=== PATIENT | female | born 1975 | race Caucasian/White ===

== ENCOUNTER 2024-09-22 14:57 | Outpatient (AMB) | payer OTHER, SELFPAY ==
--- NOTE | 2024-09-22 14:58 | MHC.OFFVIS ---
Vital Signs 09/22/24 15:13 Height 5 ft 5 in Weight 224 lb 13.944 oz BMI 37.4 BP 152/92 H Blood Pressure Location Rt brachial Position Sitting Pulse 84 Pulse Source Pulse Oximeter Pulse Oximetry (%) 99 Oxygen Delivery Method Room Air Intake Visit Reasons: Mica scrn Intake Note: NEW PATIENT for initial colo screening. FMHx noted (Paternal Grandmother) Chief Complaint; Pharmacy verified? Unspecified. 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 female with past medical history of hypertension, seasonal allergies, anxiety, GERD is here today for pre colonoscopy screening.? Patient was sent to us by her PCP.? This is her first colonoscopy screening.? Patient denies any gastrointestinal symptoms in the past or at present.? Patient reports that her mom's cousin was diagnosed with colorectal cancer. No known immediate biological family with history of CRC.? Denies history of difficulty with sedation or anesthesia in the past.? Negative for history of sleep apnea.? Denies any history of cardiac, renal, pulmonary, or hepatic disease.?? Patient has been diagnosed with GERD and has been on omeprazole for well over 2 years. She continues to have occasional acid reflux depending on what she eats. No history of infectious? diseases like hepatitis A, B, C, HIV or tuberculosis.? Patient is not on any anticoagulation [facility] Medical History Family history of colon cancer Nicotine dependence in remission GERD (gastroesophageal reflux disease) HTN (hypertension) Surgical History (Updated 09/22/24 @ 15:03 by YANDY Wilson) History of tonsillectomy Review of Systems Const Denies weight gain and Denies weight loss ENT Reports no additional complaints, Denies dysphagia and Denies odynophagia Card Reports no additional complaints Resp Reports no additional complaints GI Denies abdominal pain, Denies belching, Denies melena, Denies bloating, Denies change in bowel habits, Denies dysphagia, Denies excessive flatus, Denies dyspepsia, Denies heartburn, Denies diarrhea, Denies loose stools, Denies nausea, Denies odynophagia and Denies vomiting Musc Reports no additional complaints Neuro Reports no additional complaints Psych Reports no additional complaints Endo Reports no additional complaints Physical Exam Const General: healthy appearing, no acute distress and well developed Nutritional Appearance: well nourished Orientation/consciousness: patient oriented x3 Resp Effort & Inspection: normal respiratory effort, able to speak in complete sentences, no tracheal deviation and symmetric chest movement Auscultation: clear to auscultation bilaterally Cardio Rate: regular rate GI Inspection: Yes normal to inspection and No distended Palpation (GI): Soft to palpation, not firm, nontender and No hepatosplenomegaly present Auscultation: normal bowel sounds General: Yes no CVA tenderness Back/Spine/Pelvis Back: no CVA tenderness Skin General skin exam: elasticity normal, turgor normal and dry skin Neuro General: patient oriented x3 Psych Appearance: grossly normal Mental Status: mental status grossly normal Assessment & Plan Assessment & Plan (1) Screen for colon cancer: Code(s): Z12.11 - Encounter for screening for malignant neoplasm of colon Plan Patient denies any cardiac or respiratory symptoms.? History of acid reflux on PPI for over 2 years. Patient will be sent for upper endoscopy to rule out gastritis, esophagitis, H pylori. Patient still experiences acid reflux occasionally. Patient also reports postprandial abdominal bloating and feeling gassy. Denies any issues with anesthesia in the past.? Denies any history of sleep apnea.? No history infectious diseases in the past or present.? Not on any anticoagulation therapy.? No immediate biological family history of colon cancer.? Patient denies melena, hematochezia, unintentional weight loss or ribbon like stools.? Discussed at length the pre-procedure,? prep, diet & medications as well as what to expect prior, during and after the procedure.?? Stressed the importance of good bowel prep.? Recommended the use of Vaseline or Calmoseptine OTC & baby wipes with bowel movements to promote comfort.? ?Patient verbalizes understanding and agrees to plan of care.? She was given the opportunity to ask questions and all questions answered.? We will see her after the procedure.? Medications: New bisacodyl (Dulcolax (bisacodyl)) take 4 tabs at noon the day before your colonoscopy 20 mg (4 x 5 mg) PO ONCE 1 day 4 tabs 0RF Z12.11 - Encounter for screening for malignant neoplasm of colon polyethylene glycol 3350 (Miralax) As directed by gastroenterology department at [facility] 238 grams PO ONCE 238 grams 0RF Z12.11 - Encounter for screening for malignant neoplasm of colon Coding Level of Care Code New Pt Level 3 (17120) Diagnoses Screen for colon cancer Z12.11 Time Spent (min) 40 Comment 30 minutes spent with patient and additional 10 minutes spent reviewing her records
[2024-09-22 15:13] VITALS: BP 152/92; PULSE 84; O2SAT 99; BMI 37.4
--- OUTSIDE RECORDS SUMMARY | 2024-09-22 18:42 | XMS_ITS | Clinical Summary ---
Author Organization [facility] Address [address] [place] [id number] Care Team Providers Care Outpatient Program Coordinator Name Role Phone Dobbins Winter HAWKINS Primary Care Provider [phone] Allergies Active Allergy Reactions Criticality Noted Date Comments Sulfa Antibiotics Hives,Rash/Dermatitis,Swelling Medium 09/11/1991 Medications Medication Sig Dispensed Refills Start Date End Date Status Metoprolol Succinate 100 MG Capsule ER 24 Hour Sprinkle Take 50 mg by mouth. Active topiramate (TOPAMAX) 50 MG tablet Active Feverfew 380 MG Cap Activ e Mag Threonate-Niacinamide ER 500-250 MG Tab CR Acti ve OMEprazole 20 MG Tablet Delayed Response Active cetirizine (ZyrTEC Allergy) 10 MG tablet Act emelina Cholecalciferol (D3 2000) 2000 UNITS Cap capsule Active coenzyme Q10 (CoQ10) 100 MG capsule Active Cranberry-Vitamin C-Probiotic (AZO Cranberry) 250-30 MG Tab Active fluticasone (FloNASE) 50 mcg/spray nasal sprayIndications:Eusta chian tube dysfunction, bilateral 2 sprays into each nostril 2 times a day. 1 each 3 09/15/2024 Active Active Problems Problem Noted Date Diagnosed Date Migraine 11/10/2006 High blood pressure 03/13/1992 Encounters Date Type Department Care Team Description 09/15/2024 9:30 AM EST Clinical Support [facility] [address] [phone] Niranjan Cisneros MD Czaplicki, Allison, Au.D Otalgia of both ears (Primary Dx); Other abnormal auditory perceptions, bilateral; Tinnitus of both ears; Eustachian tube dysfunction, bilateral from Last 3 Months Immunizations Name Administration Dates Next Due Influenza, Unspecified 04/18/2024 Social History Tobacco Use Types Packs/Day Years Used Date Smoking Tobacco: Former Cigarettes Q uit: 07/13/2018 Passive Smoke Exposure: Never Smokeless Tobacco: Never Alcohol Use Standard Drinks/Week Comments Yes 0 (1 standard drink = 0.6 oz pur e alcohol) Sex and Gender Information Value Date Recorded Sex Assigned at Female 08/31/2024 9:47 AM EST Gender Identity Female 08/31/2024 9:47 AM EST Sexual Orientation Heterosexual (straight) 08/31 9:47 AM EST Last Filed Vital Signs Vital Sign Reading Time Taken Comments Blood Pressure - - Pulse - - Temperature - - Respiratory Rate - - Oxygen Saturation - - Inhaled Oxygen Concentration - - Weight 99.8 kg (220 lb) 09/15/2024 9:53 AM EST Height 165.1 cm (5' 5 ) 09/15/2024 9:53 AM EST Body Mass Index 36.61 09/15/2024 9:53 AM EST Plan of Treatment Upcoming Encounters Date Type Department Care Team (Late st Contact Info) Description 03/27/2025 9:00 AM EDT Clinical Support [facility] [address] [phone] Selena Mcleod Au.D [address] [place] [phone] 03/27/2025 9:30 AM EDT Office Visit [facility] [address] [phone] Niranjan Cisneros MD [address] [place] [phone] Health Maintenance Due Date Last Done Comments Hepatitis C Virus Screening 1975 HIV Screening 09/11/1988 DTaP/Tdap/Td Vaccines (1 - Tdap) 09/11/1994 Hepatitis B Vaccines (1 of 3 - 19+ 3-dose series) 09/11/1994 Pap Smear (Ages 21-65) 09/11/1996 Mammogram 2015 Colonoscopy 09/11/2020 COVID-19 Vaccine Completed 04/18/2024, 06/26/2021 Influenza Vaccine Completed 04/18/2024, , 06/26/2021, Additional history exists Pneumococcal Vaccine: Pediatric (0-5 Years) and At-Risk Patients (6 to 49 Years) Aged Out No longer eligible based on patient's age to complete this topic Procedures Procedure Name Priority Date/Time Associated Diagnosis Comments AUDIOMETRY Routine 09/15/2024 9:30 AM EST Other abnormal auditory perceptions, bilateral Otalgia of both ears Tinnitus of both ears AUDIOMETRY Routine 09/15/2024 9:30 AM EST Other abnormal auditory perceptions, bilateral Otalgia of both ears Tinnitus of both ears from Last 3 Months Results * Audiometry (09/15/2024 9:30 AM EST) Narrative Selena Mcleod Au.D - 09/15/2024 9:30 AM EST Regina Granado ? 09/15/2024 ??9:43 AM Niranjan Cisneros MD AUDIOLOGY SERVICES O [facility] from Last 3 Months Care Teams Outpatient Program Coordinator Relationship Specialty Start Date End Date Winter Dobbins APRN [address] [place] [address] PCP - General Family Medicine 09/15/24
--- OUTSIDE RECORDS SUMMARY | 2024-09-22 18:43 | XMS_ITS | Data Portability ---
Author Organization [facility] Address [address] [place] [address] Care Team Providers Care Electrocardiograph Technician Name Role Phone SIENNA VALIENTE Primary Care Provider SIENNA VALIENTE Referring Provider Assessment No assessment recorded. Plan of Treatment Reminders Order Date Submit Date Provider Last Modified By Organization Details Last Modified Time Details Appointments None recorde d. Lab FSH (follic le-stim ulating hormone ), serum 2023 024 [facility] Patient Reg, [address] [place], [address], 4 14:50:03 lh (lutein izing hormone ), serum 2023 024 [facility] Patient Reg, [address] [place], [address], 4 14:50:04 estradi ol, serum 2023 024 [facility] Patient Reg, [address] [place], [address], 4 14:49:57 lipid panel, serum 2023 024 [facility] Patient Reg, [address] [place], [address], 4 19:24:09 CBC w/ auto diff 2023 024 [facility] Patient Reg, [address] [place], [address], 4 18:55:15 CMP, serum or plasma 2023 024 [facility] Patient Reg, [address] [place], [address], 4 19:24:08 TSH + free T4, serum 2023 024 [facility] Patient Reg, [address] [place], [address], 4 14:50:58 pap, IG + HPV - [id number] 2023 024 [facility] Laboratory Department, [address] [place], [address] 4 00:10:23 hepatit is C virus Ab, serum 2023 024 [facility] Patient Reg, [address] [place], [address], 4 14:48:55 CBC 2022 023 [facility] Patient Reg, [address] [place], [address], 3 13:01:40 CMP, serum or plasma 2022 023 [facility] Patient Reg, [address] [place], [address], 3 13:38:49 urinaly sis, dipstic k 2022 023 [facility], [address] [facility], [facility] [address], [place], [address], 3 09:22:35 culture , urine 2022 023 [facility] Patient Reg, [address] [place], [address], 3 08:24:12 HbA1c (hemogl obin A1c), blood 2022 023 [facility] Patient Reg, [address] [place], [address], 3 19:08:11 lipid panel, serum 2022 023 [facility] Patient Reg, [address] [place], [address], 3 13:38:51 TSH + free T4, serum 2022 023 [facility] Patient Reg, [address] [place], [address], 3 19:31:22 25-hydr oxyvita min D2 + 25-hydr oxyvita min D3, QN, serum or plasma 2022 023 [facility] Patient Reg, [address] [place], [address], 3 19:37:09 magnesi um, serum or plasma 2022 023 [facility] Patient Reg, [address] [place], [address], 3 13:38:53 vitamin B12, serum 2022 023 [facility] Patient Reg, [address] [place], [address], 3 20:02:15 lipid panel, serum [address] Patient Reg, [address] [place], [address], 3 10:28:12 vitamin B12, serum [address] Patient Reg, [address] [place], [address], 3 10:28:12 HbA1c (hemogl obin A1c), blood 2021 022 [facility] Patient Reg, [address] [place], [address], 17:03:37 CBC w/ auto diff 2021 [facility] Patient Reg, [address] [place], [address], 18:16:50 CMP, serum or plasma 2021 [facility] Patient Reg, [address] [place], [address], 18:27:30 TSH, serum or plasma 2021 [facility] Patient Reg, [address] [place], [address], 18:15:24 vitamin B12 + folate, serum or blood 2021 [facility] (Outpatient Registration), [address] [place], [address], 17:27:34 Referral gastroe nterolo gist referra l - Please schedul e and advise patient . Thank you! 2023 024 [email or web address] [facility], [address] [place] [address] , 3rd Fl, [place], [address], 5 11:37:49 gynecol ogist referra l - 47 YO F would like to establi sh care with EMULSIFICATION OPERATOR. Please eval and treat. 2022 024 [email or web address] Sam Strange MD, [address] [facility], [address], [place], [address], 4 13:52:01 gastroe nterolo gist referra l - Due for colon cancer screeni ng. Family History : 2021 022 [facility], [address], [place], [address], 3 12:07:01 Procedures None recorde d. Surgeries None recorde d. Imaging MAMMOabelardo gerardo, tomosyn thesis, abhishek al 2023 024 [facility], [address] [place] [address] Rd, [address], [place], [address], 13:57:05 MAMMOabelardo abhishek carrillo al 2022 023 [facility] (Central Scheduling), [address] [place], [address], 4 04:02:16 MAMMOabelardoabhishek al 2021 022 [facility] (Central Scheduling), [address] [place] [address], [address], 12:53:24 XR, chest, 2 view 2021 022 [facility] (Central Scheduling), [address] [place], [address], 10:23:42 Medication Orders Augment in 875 mg-[address] [id number] [address] [place], [address], 5 15:39:39 prednis one 20 mg tablet [address] [id number] [address] [place], [address], 5 15:39:40 Tessalo n Perles 100 mg capsule 2021 022 [email or web address] [facility] #[id number], [address] [place] [address], [address], 3 07:40:44 Patient TargetsNo targets recorded. Patient InstructionsNo instructions recorded. 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 Family History: Referring Physician: Britney Talavera, Family Medicine, Encounter Date: 04/11/2022 [employer] Consultant Referral for Gy necologic examination 47 YO F would like to establish care with EMULSIFICATION OPERATOR. Please eval and treat. Referring Physician: Pippa Bolivar, Family Medicine, Encounter Date: 06/12/2023 Stove Tender Referral for Screening for malignant neoplasm of colon Please schedule and advise patient. Thank you! Referring Physician: Winter Dobbins, Internal Medicine, Encounter Date: 04/11/2024 Results Created Date Observation Date Name Description Value Unit Range Abnormal Flag Note LastModifiedBy Organization Detail LastModifiedTime 01/30/20 22 01/29/2022 THYRO ID STIMU LATIN G HORMO NE thyroid stimulating hormone 2.4000 uIU/m L 0.27-4 .2 normal Not Available [facility] [address] [place] [address], [id number] 01/29/2022 18:15:24 01/30/20 22 01/29/2022 COMPL ETE BLOOD COUNT AUTO DIFF white blood count 7.33 K/uL 3.5-11 .0 normal Not Available [facility] [address] [place] [address], [id number] 01/29/2022 18:16:50 01/30/20 22 01/29/2022 COMPL ETE BLOOD COUNT AUTO DIFF red blood count 4.85 M/uL 3.60-4 .80 high Not Available [facility] [address] [place] [address], [id number] 01/29/2022 18:16:50 01/30/20 22 01/29/2022 COMPL ETE BLOOD COUNT AUTO DIFF hemoglobin 14.9 g/dL 12.0-1 6.0 normal Not Available [facility] [address] [place] [address], [id number] 01/29/2022 18:16:50 01/30/20 22 01/29/2022 COMPL ETE BLOOD COUNT AUTO DIFF hematocrit 44.3 % 36.0-4 8.0 normal Not Available [facility] [address] [place] [address], [id number] 01/29/2022 18:16:50 01/30/20 22 01/29/2022 COMPL ETE BLOOD COUNT AUTO DIFF mean corpuscular volume 91.3 fL 79.0-9 8.0 normal Not Available [facility] [address] [place] [address], [id number] 01/29/2022 18:16:50 01/30/20 22 01/29/2022 COMPL ETE BLOOD COUNT AUTO DIFF mean corpuscular hemoglobin 30.7 pg 25.4-3 4.6 normal Not Available [facility] Department [address] [place] [address], [id number] 01/29/2022 18:16:50 01/30/20 22 01/29/2022 COMPL ETE BLOOD COUNT AUTO DIFF mean corpuscular HGB conc 33.6 g/dL 30.0-3 6.0 normal Not Available [facility] [address] [place] [address], [id number] 01/29/2022 18:16:50 01/30/20 22 01/29/2022 COMPL ETE BLOOD COUNT AUTO DIFF red cell distribution width 12.6 % 11.5-1 4.5 normal Not Available [facility] [address] [place] [address], [id number] 01/29/2022 18:16:50 01/30/20 22 01/29/2022 COMPL ETE BLOOD COUNT AUTO DIFF platelet count 333 K/uL 150-40 0 normal Not Available [facility] [address] [place] [address], [id number] 01/29/2022 18:16:50 01/30/20 22 01/29/2022 COMPL ETE BLOOD COUNT AUTO DIFF neutrophils percent auto 64.8 % 35.0-6 6.0 normal Not Available [facility] [address] [place] [address], [id number] 01/29/2022 18:16:50 01/30/20 22 01/29/2022 COMPL ETE BLOOD COUNT AUTO DIFF lymphocytes percent auto 26.5 % 25.0-4 5.0 normal Not Available [facility] [address] [place] [address], [id number] 01/29/2022 18:16:50 01/30/20 22 01/29/2022 COMPL ETE BLOOD COUNT AUTO DIFF monocytes percent auto 6.5 % 0.0-13 .0 normal Not Available [facility] Department [address] [place], [address] 01/29/2022 18:16:50 01/30/20 22 01/29/2022 COMPL ETE BLOOD COUNT AUTO DIFF eosinophils percent auto 1.9 % 0.0-8. 0 normal Not Available [facility] Department [address] [place], [address] 01/29/2022 18:16:50 01/30/20 22 01/29/2022 COMPL ETE BLOOD COUNT AUTO DIFF basophils percent auto 0.3 % 0.0-1. 0 normal Not Available [facility] Department [address] [place], [address] 01/29/2022 18:16:50 01/30/20 22 01/29/2022 COMPL ETE BLOOD COUNT AUTO DIFF neutrophils absolute auto 4.75 K/uL 1.5-7. 5 normal Cauti on: Inter preta tion of ANC resul ts witho ut inclu minesh of the WBC diffe renti al resul ts may lead to bree eous diagn osis; for examp le, osvaldo ng myelo proli ferat [place] or lymph oprol ifera tive disor ders. Not Available [facility] Department [address] [place] [address], [id number] 01/29/2022 18:16:50 01/30/20 22 01/29/2022 COMPL ETE BLOOD COUNT AUTO DIFF lymphocytes absolute auto 1.94 K/uL 0.8-4. 8 normal Not Available [facility] Department [address] [place], [address] 01/29/2022 18:16:50 01/30/20 22 01/29/2022 COMPL ETE BLOOD COUNT AUTO DIFF monocytes absolute auto 0.48 K/uL 0.4-1. 3 normal Not Available [facility] [address] [place] [address], [id number] 01/29/2022 18:16:50 01/30/20 22 01/29/2022 COMPL ETE BLOOD COUNT AUTO DIFF eosinophils absolute auto 0.14 K/uL 0.0-0. 8 normal Not Available [facility] [address] [place] [address], [id number] 01/29/2022 18:16:50 01/30/20 22 01/29/2022 COMPL ETE BLOOD COUNT AUTO DIFF basophils absolute auto 0.02 K/uL 0.0-0. 6 normal Not Available [facility] [address] [place] [address], [id number] 01/29/2022 18:16:50 01/30/20 22 01/29/2022 COMPR EHENS ANGELES MET. PANEL sodium 142 mmol/ L 136-14 5 normal Not Available [facility] Department [address] [place] [address], [id number] 01/29/2022 18:27:30 01/30/20 22 01/29/2022 COMPR EHENS ANGELES MET. PANEL potassium 4.1 mmol/ L 3.5-5. 1 normal Not Available [facility] [address] [place] [address], [id number] 01/29/2022 18:27:30 01/30/20 22 01/29/2022 COMPR EHENS ANGELES MET. PANEL chloride 109 mmol/ L 98-107 high Not Available [facility] [address] [place] [address], [id number] 01/29/2022 18:27:30 01/30/20 22 01/29/2022 COMPR EHENS ANGELES MET. PANEL carbon dioxide 17.9 mmol/ L 22-29 low Not Available [facility] [address] [place] [address], [id number] 01/29/2022 18:27:30 01/30/20 22 01/29/2022 COMPR EHENS ANGELES MET. PANEL anion gap 19 mmol/ L 10-20 normal Not Available [facility] [address] [place] [address], [id number] 01/29/2022 18:27:30 01/30/20 22 01/29/2022 COMPR EHENS ANGELES MET. PANEL blood urea nitrogen 15 mg/dL 6-20 normal Not Available [facility] Laboratory Department [address] [place], [address] 01/29/2022 18:27:30 01/30/20 22 01/29/2022 COMPR EHENS ANGELES MET. PANEL creatinine 0.81 mg/dL 0.50-0 .90 normal Not Available [facility] Department [address] [place] [address], [id number] 01/29/2022 18:27:30 01/30/20 22 01/29/2022 COMPR EHENS ANGELES MET. PANEL glomerular filtration rate 87 GFR Value : ml/mi n/1.7 3 squar e meter s * If patie nt is Afric an-Am ta n, multi ply resul t by 1.159 Chron ic Kidne y Disea se is defin ed as less than 60 ml/mi n/1.7 3 squar e meter s. Kidne y failu re is less than 15 ml/mi n/1.7 3 squar e meter s Test is not perfo rmed on patie nts under the age of 18 Not Available [facility] Department [address] [place], [address] 01/29/2022 18:27:30 01/30/20 22 01/29/2022 COMPR EHENS ANGELES MET. PANEL glucose 100 mg/dL 70-106 normal Not Available [facility] Department [address] [place], [address] 01/29/2022 18:27:30 01/30/20 22 01/29/2022 COMPR EHENS ANGELES MET. PANEL calcium 9.8 mg/dL 8.4-10 .3 normal Not Available [facility] Department [address] [place], [address] 01/29/2022 18:27:30 01/30/20 22 01/29/2022 COMPR EHENS ANGELES MET. PANEL bilirubin total 0.4 mg/dL 0.2-1. 2 normal Not Available [facility] Department [address] [place], [address] 01/29/2022 18:27:30 01/30/20 22 01/29/2022 COMPR EHENS ANGELES MET. PANEL aspartate amino transferase 19 U/L 5-32 normal Not Available [facility] Laboratory Department [address] [place], [address] 01/29/2022 18:27:30 01/30/20 22 01/29/2022 COMPR EHENS ANGELES MET. PANEL alanine aminotransfe rase 33 U/L 5-33 normal Not Available [facility] Department [address] [place], [address] 01/29/2022 18:27:30 01/30/20 22 01/29/2022 COMPR EHENS ANGELES MET. PANEL total protein 7.2 g/dL 6.4-8. 3 normal Not Available [facility] Department [address] [place], [address] 01/29/2022 18:27:30 01/30/20 22 01/29/2022 COMPR EHENS ANGELES MET. PANEL albumin level 4.7 g/dL 3.5-5. 2 normal Not Available [facility] Department [address] [place], [address] 01/29/2022 18:27:30 01/30/20 22 01/29/2022 COMPR EHENS ANGELES MET. PANEL globulin 2.5 gm/dL 2.0-3. 5 normal Not Available [facility] Department [address] [place] [address], [id number] 01/29/2022 18:27:30 01/30/20 22 01/29/2022 COMPR EHENS ANGELES MET. PANEL albumin globulin ratio 1.9 % 1.1-2. 5 normal Not Available [facility] Department [address] [place] [address], [id number] 01/29/2022 18:27:30 01/30/20 22 01/29/2022 COMPR EHENS ANGELES MET. PANEL alkaline phosphatase 88 U/L 35-104 normal Not Available [facility] Department [address] [place] [address], [id number] 01/29/2022 18:27:30 01/30/20 22 01/30/2022 HEMOG LOBIN A1C hemoglobin A1C % 5.5 % 4.0-5. 7 normal % of the total HgB Inter preta tion ----- ----- ----- --- ----- ----- ----- - <5.7 Consi stent with the absen ce of diabe belinda 5.7-6 .4 Consi stent with incre ased risk for diabe belinda (pred iabet es) > or = to 6.5 Consi stent with Diabe belinda Not Available [facility] [address] [place] [address], [id number] 01/30/2022 17:03:36 01/30/20 22 01/30/2022 VITAM IN B12 AND FOLAT E vitamin B12 198 pg/mL 232-12 45 low Not Available [facility] Department [address] [place], [address] 01/30/2022 17:27:33 01/30/20 22 01/30/2022 VITAM IN B12 AND FOLAT E folate 7.0 NG/mL 4.8-18 .8 normal Not Available [facility] [address] [place] [address], [id number] 01/30/2022 17:27:33 06/12/20 23 06/12/2023 COMPL ETE BLOOD COUNT NO DIFF white blood count 6.34 K/uL 3.5-11 .0 normal Not Available [facility] [address] [place] [address], [id number] 06/12/2023 13:01:39 06/12/20 23 06/12/2023 COMPL ETE BLOOD COUNT NO DIFF red blood count 5.02 M/uL 3.60-4 .80 high Not Available [facility] [address] [place] [address], [id number] 06/12/2023 13:01:39 06/12/20 23 06/12/2023 COMPL ETE BLOOD COUNT NO DIFF hemoglobin 15.0 g/dL 12.0-1 6.0 normal Not Available [facility] [address] [place] [address], [id number] 06/12/2023 13:01:39 06/12/20 23 06/12/2023 COMPL ETE BLOOD COUNT NO DIFF hematocrit 45.8 % 36.0-4 8.0 normal Not Available [facility] [address] [place] [address], 24023 06/12/2023 13:01:39 06/12/20 23 06/12/2023 COMPL ETE BLOOD COUNT NO DIFF mean corpuscular volume 91.2 fL 79.0-9 8.0 normal Not Available [facility] [address] [place] [address], 56129 06/12/2023 13:01:39 06/12/20 23 06/12/2023 COMPL ETE BLOOD COUNT NO DIFF mean corpuscular hemoglobin 29.9 pg 25.4-3 4.6 normal Not Available [facility] [address] [place] [address], 28468 06/12/2023 13:01:39 06/12/20 23 06/12/2023 COMPL ETE BLOOD COUNT NO DIFF mean corpuscular HGB conc 32.8 g/dL 30.0-3 6.0 normal Not Available [facility] [address] [place] [address], 29050 06/12/2023 13:01:39 06/12/20 23 06/12/2023 COMPL ETE BLOOD COUNT NO DIFF red cell distribution width 12.7 % 11.5-1 4.5 normal Not Available [facility] [address] [place] [address], 98193 06/12/2023 13:01:39 06/12/20 23 06/12/2023 COMPL ETE BLOOD COUNT NO DIFF platelet count 325 K/uL 150-40 0 normal Not Available [facility] [address] [place] [address], [id number] 06/12/2023 13:01:39 06/12/20 23 06/12/2023 COMPL ETE BLOOD COUNT NO DIFF neutrophils absolute auto 4.45 K/uL 1.5-7. 5 normal Cauti on: Inter preta tion of ANC resul ts witho ut inclu minesh of the WBC diffe renti al resul ts may lead to bree eous diagn osis; for examp le, osvaldo ng myelo proli ferat [place] or lymph oprol ifera tive disor ders. Not Available [facility] Department [address] [place] [address], [id number] 06/12/2023 13:01:39 06/12/20 23 06/12/2023 COMPR EHENS ANGELES MET. PANEL sodium 135 mmol/ L 136-14 5 low Not Available [facility] [address] [place] [address], [id number] 06/12/2023 13:38:49 06/12/20 23 06/12/2023 COMPR EHENS ANGELES MET. PANEL potassium 4.4 mmol/ L 3.5-5. 1 normal Not Available [facility] Department [address] [place] [address], 46236 06/12/2023 13:38:49 06/12/20 23 06/12/2023 COMPR EHENS ANGELES MET. PANEL chloride 105 mmol/ L 98-107 normal Not Available [facility] [address] [place] [address], 94422 06/12/2023 13:38:49 06/12/20 23 06/12/2023 COMPR EHENS ANGELES MET. PANEL carbon dioxide 18.6 mmol/ L 22-29 low Not Available [facility] Department [address] [place], [address] 06/12/2023 13:38:49 06/12/20 23 06/12/2023 COMPR EHENS ANGELES MET. PANEL anion gap 16 mmol/ L 10-20 normal Not Available [facility] [address] [place] [address], 42231 06/12/2023 13:38:49 06/12/20 23 06/12/2023 COMPR EHENS ANGELES MET. PANEL blood urea nitrogen 11 mg/dL 6-20 normal Not Available [facility] Department [address] [place] [address], [id number] 06/12/2023 13:38:49 06/12/20 23 06/12/2023 COMPR EHENS ANGELES MET. PANEL creatinine 0.79 mg/dL 0.50-0 .90 normal Not Available [facility] Department [address] [place] [address], 07031 06/12/2023 13:38:49 06/12/20 23 06/12/2023 COMPR EHENS ANGELES MET. PANEL estimated glomerular filt rate 93 GFR Value : mL/mi n/1.7 3 squar e meter s Calcu latio n: CKD-E PI Creat inine Equat ion (2020 ) Chron ic Kidne y Disea se is defin ed as eithe r of the follo wing prese nt for >= 3 month s: - GFR less than 60 mL/mi n/1.7 3 squar e meter s. - Micro album in:Ur . Creat inine Ratio >= 30 mg/g or other marke rs of kidne y damag e Kidne y failu re is less than 15 mL/mi n/1.7 3 squar e meter s This test is not perfo rmed in patie nts under the age of 18. Not Available [facility] Department [address] [place], [address] 06/12/2023 13:38:49 06/12/20 23 06/12/2023 COMPR EHENS ANGELES MET. PANEL glucose 118 mg/dL 70-106 high Not Available [facility] Department [address] [place], [address] 06/12/2023 13:38:49 06/12/20 23 06/12/2023 COMPR EHENS ANGELES MET. PANEL calcium 9.9 mg/dL 8.4-10 .3 normal Not Available [facility] Department [address] [place], [address] 06/12/2023 13:38:49 06/12/20 23 06/12/2023 COMPR EHENS ANGELES MET. PANEL bilirubin total < 0.2 mg/dL 0.2-1. 2 low Not Available [facility] Department [address] [place], [address] 06/12/2023 13:38:49 06/12/20 23 06/12/2023 COMPR EHENS ANGELES MET. PANEL aspartate amino transferase 22 U/L 5-32 normal Not Available [facility] Department [address] [place], [address] 06/12/2023 13:38:49 06/12/20 23 06/12/2023 COMPR EHENS ANGELES MET. PANEL alanine aminotransfe rase 32 U/L 5-33 normal Not Available [facility] Department [address] [place], [address] 06/12/2023 13:38:49 06/12/20 23 06/12/2023 COMPR EHENS ANGELES MET. PANEL total protein 7.3 g/dL 6.4-8. 3 normal Not Available [facility] Department [address] [place], [address] 06/12/2023 13:38:49 06/12/20 23 06/12/2023 COMPR EHENS ANGELES MET. PANEL albumin level 4.7 g/dL 3.5-5. 2 normal Not Available [facility] Department [address] [place], [address] 06/12/2023 13:38:49 06/12/20 23 06/12/2023 COMPR EHENS ANGELES MET. PANEL globulin 2.6 gm/dL 2.0-3. 5 normal Not Available [facility] Department [address] [place], [address] 06/12/2023 13:38:49 06/12/20 23 06/12/2023 COMPR EHENS ANGELES MET. PANEL albumin globulin ratio 1.8 % 1.1-2. 5 normal Not Available [facility] Department [address] [place], [address] 06/12/2023 13:38:49 06/12/20 23 06/12/2023 COMPR EHENS ANGELES MET. PANEL alkaline phosphatase 88 U/L 35-104 normal Not Available [facility] Department [address] [place], [address] 06/12/2023 13:38:49 06/12/20 23 06/12/2023 LIPID PANEL WITH REFLE X triglyceride s w/ reflex LDL 138 mg/dL 30-150 normal Refer ence Range s: <150 mg/dl Annalisa l 150-1 99 mg/dl Borde rline High 200-4 99 mg/dl High >500 mg/dl Very High Not Available [facility] [address] [place] [address], 21204 06/12/2023 13:38:51 06/12/20 23 06/12/2023 LIPID PANEL WITH REFLE X cholesterol 212 mg/dL 100-20 0 high Not Available [facility] Department [address] [place], [address] 06/12/2023 13:38:51 06/12/20 23 06/12/2023 LIPID PANEL WITH REFLE X LDL cholesterol calculated 136.4 mg/dL 0-100 high Natio nal Ifeoma stero l Educa tion Progr am sugge sts the follo wing refer ence range : Optim al <100 mg/dL Near optim al/ab ove optim al 100-1 29 mg/dL Borde rline high 130-1 59 mg/dL High 160-1 89 mg/dL Very high >190 mg/dL Not Available [facility] Department [address] [place], [address] 06/12/2023 13:38:51 06/12/20 23 06/12/2023 LIPID PANEL WITH REFLE X HDL cholesterol 48.0 mg/dL 40-60 normal Major risk facto r for CHD: <40 mg/dL Negat angeles risk facto r for CHD: >=60 mg/dL Not Available [facility] Department [address] [place] [address], [id number] 06/12/2023 13:38:51 06/12/20 23 06/12/2023 LIPID PANEL WITH REFLE X chol HDL ratio 4.42 Risk CHOL/ HDL CHOL/ HDL Ratio Male Femal e 1/2 AVERA GE 3.43 3.27 AVERA GE 4.97 4.44 2 X AVERA GE 9.55 7.05 3 X AVERA GE 23.39 11.04 Not Available [facility] Department [address] [place], [address] 06/12/2023 13:38:51 06/12/20 23 06/12/2023 MAGNE SIUM magnesium 2.20 mg/dL 1.6-2. 6 normal Not Available [facility] [address] [place] [address], 02796 06/12/2023 13:38:53 06/12/20 23 06/12/2023 HEMOG LOBIN A1C hemoglobin A1C % 5.6 % 4.0-5. 7 normal % of the total HgB Inter preta tion ----- ----- ----- --- ----- ----- ----- - <5.7 Consi stent with the absen ce of diabe belinda 5.7-6 .4 Consi stent with incre ased risk for diabe belinda (pred iabet es) > or = to 6.5 Consi stent with Diabe belinda Not Available [facility] [address] [place], [address] 06/12/2023 19:08:11 06/12/20 23 06/12/2023 TSH REFLE X FREE T4 TSH reflex free T4 2.30 uIU/m L 0.27-4 .20 normal Not Available [facility] [address] [place], [address] 06/12/2023 19:31:22 06/12/20 23 06/12/2023 VITAM IN D 25-OH TOTAL vitamin D 25-oh total 18.6 NG/mL Refer ence Range : Defic ient <20 ng/mL Insuf ficie nt 21-29 ng/mL Suffi cient >30 ng/mL Not Available [facility] [address] [place], [address] 06/12/2023 19:37:06/12/2006/12/2023 VITAM IN B12 vitamin B12 > 2000 pg/mL 232-12 45 high Not Available [facility] [address] [facility], [place], [address] 06/12/2023 20:02:15 06/12/2006/12/2023 URINE CULTU RE results ----- ----- ----- ----- ----- ----- ----- ----- ----- ----- ----- ----- ----- ----- ----- ----- ----- ----- -- RUN DATE: 06/13 Stanley bustamante *Live * - LAB PAGE 1 RUN TIME: 823 Speci men Inqui ry ----- ----- ----- ----- ----- ----- ----- ----- ----- ----- ----- ----- ----- ----- ----- ----- ----- ----- -- PATIE NT: Betsey Celestin ACCT: [id number] LOC: AP [facility] U: [id number] AGE/S X: 47/F ROOM: RE06/[address]: Lloyd MISTRY : 09/11 BED: DIS: STATU S: PRE CLI TLOC: ----- ----- ----- ----- ----- ----- ----- ----- ----- ----- ----- ----- ----- ----- ----- ----- ----- ----- -- SPEC #: [id number] DANIA: 06/12- 218 STATU S: COMP REQ #: [id number] RECD: 06/12- [address]: Lloyd MISTRY SOURC E: Urine CC ENTR: 06/12- [address]: Bhavna DIAZ C: ORDER ED: Urine Cultu re QUERI ES: MDRO Follo w Up Cultu re? N If yes, kenney e speci fy: CRE ACT WKST: CULT 06/13 #1 ----- ----- ----- ----- ----- ----- ----- ----- ----- ----- ----- ----- ----- ----- ----- ----- ----- ----- -- Proce dure Resul t ----- ----- ----- ----- ----- ----- ----- ----- ----- ----- ----- ----- ----- ----- ----- ----- ----- ----- -- Urine Cultu re Final Repor t Resul t Mixed uroge nital [place] isola chaitanya Colon y Count 10,00 0 to 25,00 0 (inco nclus [place]) CFU/m l ----- ----- ----- ----- ----- ----- ----- ----- ----- ----- ----- ----- ----- ----- ----- ----- ----- ----- -- END OF REPOR T Not Available [facility] [address] [place], [address] 06/13/2023 08:24:11 06/12/20 23 06/12/2023 urina lysis , dipst ick Urobilinogen Normal Not Available [facility] [address] [facility] [address], [place], [address], 06/12/2023 08:03:45 06/12/20 23 06/12/2023 urina lysis , dipst ick Bilirubin negati ve Not Available [facility] [address] [facility] [address], [place], [address], 06/12/2023 08:03:45 06/12/20 23 06/12/2023 urina lysis , dipst ick Protein negati ve Not Available [facility] [address] [facility] [address], [place], [address], 06/12/2023 08:03:45 06/12/20 23 06/12/2023 urina lysis , dipst ick Nitrite negati ve Not Available [facility] [address] [place] [address], [place], [address], 06/12/2023 08:03:45 06/12/20 23 06/12/2023 urina lysis , dipst ick Ketones negati ve Not Available [facility] [address] [place] [address], [place], [address], 06/12/2023 08:03:45 06/12/20 23 06/12/2023 urina lysis , dipst ick Glucose negati ve Not Available [facility] [address] [place] [address], [place], [address], 06/12/2023 08:03:45 06/12/20 23 06/12/2023 urina lysis , dipst ick PH 6.5 Not Available [facility] [address] [facility] [address], [place], [address], 06/12/2023 08:03:45 06/12/20 23 06/12/2023 urina lysis , dipst ick Specific [place] 1.015 Not Available [facility] [address], [place], [address], 06/12/2023 08:03:45 06/12/20 06/12/2023 urina lysis , dipst ick Leukocytes trace Not Available [facility] [address] [place] [address], [place], [address], 06/12/2023 08:03:45 06/12/20 23 06/12/2023 urina lysis , dipst ick Blood Negati ve Not Available [facility] [address] [place] [address], [place], [address], 06/12/2023 08:03:45 06/12/20 23 06/12/2023 urina lysis , dipst ick Appearance: clear Not Available [facility] [address] [place] [address], [place], [address], 06/12/2023 08:03:45 06/12/20 23 06/12/2023 urina lysis , dipst ick Color Yellow Not Available [facility] [address] [place] [address], [place], [address], 06/12/2023 08:03:45 06/12/20 23 06/12/2023 urina lysis , dipst ick Lot #: [id number] Not Available [facility] [address] [place] [address], [place], [address], 06/12/2023 08:03:45 06/12/20 23 06/12/2023 urina lysis , dipst ick Exp Date: Not Available [facility] [address] [place] [address], [place], [address], 06/12/2023 08:03:45 04/11/20 24 04/11/2024 COMPL ETE BLOOD COUNT AUTO DIFF white blood count 6.51 K/uL 3.5-11 .0 normal Not Available [facility] [address] [facility], [place], [address] 04/11/2024 18:55:15 04/11/20 24 04/11/2024 COMPL ETE BLOOD COUNT AUTO DIFF red blood count 4.90 M/uL 3.60-4 .80 high Not Available [facility] [address] [place], [address] 04/11/2024 18:55:15 04/11/2004/11/2024 COMPL ETE BLOOD COUNT AUTO DIFF hemoglobin 15.0 g/dL 12.0-1 6.0 normal Not Available [facility] [address] [place] [address], [address] 04/11/2024 18:55:15 04/11/2004/11/2024 COMPL ETE BLOOD COUNT AUTO DIFF hematocrit 45.3 % 36.0-4 8.0 normal Not Available [facility] [address] [place] [address], [address] 04/11/2024 18:55:15 04/11/2004/11/2024 COMPL ETE BLOOD COUNT AUTO DIFF mean corpuscular volume 92.4 fL 79.0-9 8.0 normal Not Available [facility] [address] [place] [address], [address] 04/11/2024 18:55:15 04/11/2004/11/2024 COMPL ETE BLOOD COUNT AUTO DIFF mean corpuscular hemoglobin 30.6 pg 25.4-3 4.6 normal Not Available [facility] [address] [place] [address], [address] 04/11/2024 18:55:15 04/11/2004/11/2024 COMPL ETE BLOOD COUNT AUTO DIFF mean corpuscular HGB conc 33.1 g/dL 30.0-3 6.0 normal Not Available [facility] [address] [place] [address], [address] 04/11/2024 18:55:15 04/11/2004/11/2024 COMPL ETE BLOOD COUNT AUTO DIFF red cell distribution width 12.3 % 11.5-1 4.5 normal Not Available [facility] [address] [place] [address], [address] 04/11/2024 18:55:15 04/11/2004/11/2024 COMPL ETE BLOOD COUNT AUTO DIFF platelet count 349 K/uL 150-40 0 normal Not Available [facility] [address] [place] [address], [address] 04/11/2024 18:55:15 04/11/20 24 04/11/2024 COMPL ETE BLOOD COUNT AUTO DIFF neutrophils percent auto 67.0 % 35.0-6 6.0 high Not Available [facility] [address] [place] [address], [address] 04/11/2024 18:55:15 04/11/20 24 04/11/2024 COMPL ETE BLOOD COUNT AUTO DIFF lymphocytes percent auto 25.7 % 25.0-4 5.0 normal Not Available [facility] [address] [place] [address], [address] 04/11/2024 18:55:15 04/11/20 24 04/11/2024 COMPL ETE BLOOD COUNT AUTO DIFF monocytes percent auto 5.7 % 0.0-13 .0 normal Not Available [facility] [address] [place] [address], [address] 04/11/2024 18:55:15 04/11/20 24 04/11/2024 COMPL ETE BLOOD COUNT AUTO DIFF eosinophils percent auto 1.4 % 0.0-8. 0 normal Not Available [facility] [address] [place] [address], [address] 04/11/2024 18:55:15 04/11/20 24 04/11/2024 COMPL ETE BLOOD COUNT AUTO DIFF basophils percent auto 0.2 % 0.0-1. 0 normal Not Available [facility] [address] [place] [address], [address] 04/11/2024 18:55:15 04/11/20 24 04/11/2024 COMPL ETE BLOOD COUNT AUTO DIFF neutrophils absolute auto 4.37 K/uL 1.5-7. 5 normal Not Available [facility] [address] [place] [address], [address] 04/11/2024 18:55:15 04/11/20 24 04/11/2024 COMPL ETE BLOOD COUNT AUTO DIFF lymphocytes absolute auto 1.67 K/uL 0.8-4. 8 normal Not Available [facility] [address] [place] [address], [address] 04/11/2024 18:55:15 04/11/20 24 04/11/2024 COMPL ETE BLOOD COUNT AUTO DIFF monocytes absolute auto 0.37 K/uL 0.4-1. 3 low Not Available [facility] [address] [place], [address] 04/11/2024 18:55:15 04/11/20 24 04/11/2024 COMPL ETE BLOOD COUNT AUTO DIFF eosinophils absolute auto 0.09 K/uL 0.0-0. 8 normal Not Available [facility] [address] [place], [address] 04/11/2024 18:55:15 04/11/20 24 04/11/2024 COMPL ETE BLOOD COUNT AUTO DIFF basophils absolute auto 0.01 K/uL 0.0-0. 6 normal Not Available [facility] [address] [place] [address], [address] 04/11/2024 18:55:15 04/11/20 24 04/11/2024 COMPR EHENS ANGELES MET. PANEL sodium 139 mmol/ L 136-14 5 normal Not Available [facility] [address] [place] [address], [address] 04/11/2024 19:24:08 04/11/20 24 04/11/2024 COMPR EHENS ANGEELS MET. PANEL potassium 4.2 mmol/ L 3.5-5. 1 normal Not Available [facility] [address] [place] [address], [address] 04/11/2024 19:24:08 04/11/20 24 04/11/2024 COMPR EHENS ANGELES MET. PANEL chloride 107 mmol/ L 98-107 normal Not Available [facility] [address] [place] [address], [address] 04/11/2024 19:24:08 04/11/20 24 04/11/2024 COMPR EHENS ANGELES MET. PANEL carbon dioxide 17.3 mmol/ L 22-29 low Not Available [facility] [address] [place] [address], [address] 04/11/2024 19:24:08 04/11/20 24 04/11/2024 COMPR EHENS ANGELES MET. PANEL anion gap 19 mmol/ L 10-20 normal Not Available [facility] [address] [place] [address], [address] 04/11/2024 19:24:08 04/11/20 24 04/11/2024 COMPR EHENS ANGELES MET. PANEL blood urea nitrogen 10 mg/dL 6-20 normal Not Available [facility] [address] [place], [address] 04/11/2024 19:24:08 04/11/20 24 04/11/2024 COMPR EHENS ANGELES MET. PANEL creatinine 0.79 mg/dL 0.50-0 .90 normal Not Available [facility] [address] [place], [address] 04/11/2024 19:24:08 04/11/20 24 04/11/2024 COMPR EHENS ANGELES MET. PANEL estimated glomerular filt rate 92 GFR Value : mL/mi n/1.7 3 squar e meter s Calcu latio n: CKD-E PI Creat inine Equat ion (2020 ) Chron ic Kidne y Disea se is defin ed as eithe r of the follo wing prese nt for >= 3 month s: - GFR less than 60 mL/mi n/1.7 3 squar e meter s. - Micro album in:Ur . Creat inine Ratio >= 30 mg/g or other marke rs of shagufta reynoldsag e Kidne y failu re is less than 15 mL/mi n/1.7 3 squar e meter s This test is not perfo rmed in patie nts under the age of 18. Not Available [facility] [address] [place], [address] 04/11/2024 19:24:08 04/11/20 24 04/11/2024 COMPR EHENS ANGELES MET. PANEL glucose 108 mg/dL 70-106 high Not Available [facility] [address] [place], [address] 04/11/2024 19:24:08 04/11/20 24 04/11/2024 COMPR EHENS ANGELES MET. PANEL calcium 9.1 mg/dL 8.4-10 .3 normal Not Available [facility] [address] [place], [address] 04/11/2024 19:24:08 04/11/20 24 04/11/2024 COMPR EHENS ANGELES MET. PANEL bilirubin total 0.3 mg/dL 0.2-1. 2 normal Not Available [facility] [address] [place], [address] 04/11/2024 19:24:08 04/11/20 24 04/11/2024 COMPR EHENS ANGELES MET. PANEL aspartate amino transferase 18 U/L 5-32 normal Not Available [facility] [address] [place] [address], [address] 04/11/2024 19:24:08 04/11/20 24 04/11/2024 COMPR EHENS ANGELES MET. PANEL alanine aminotransfe rase 23 U/L 5-33 normal Not Available [facility] [address] [place], [address] 04/11/2024 19:24:08 04/11/20 24 04/11/2024 COMPR EHENS ANGELES MET. PANEL total protein 7.6 g/dL 6.4-8. 3 normal Not Available [facility] [address] [place] [address], [address] 04/11/2024 19:24:08 04/11/20 24 04/11/2024 COMPR EHENS ANGELES MET. PANEL albumin level 4.4 g/dL 3.5-5. 2 normal Not Available [facility] [address] [place] [address], [address] 04/11/2024 19:24:08 04/11/20 24 04/11/2024 COMPR EHENS ANGELES MET. PANEL globulin 3.2 gm/dL 2.0-3. 5 normal Not Available [facility] [address] [place] [address], [address] 04/11/2024 19:24:08 04/11/20 24 04/11/2024 COMPR EHENS ANGELES MET. PANEL albumin globulin ratio 1.4 % 1.1-2. 5 normal Not Available [facility] [address] [place] [address], [address] 04/11/2024 19:24:08 04/11/20 24 04/11/2024 COMPR EHENS ANGELES MET. PANEL alkaline phosphatase 95 U/L 35-104 normal Not Available [facility] [address] [place] [address], [address] 04/11/2024 19:24:08 04/11/20 24 04/11/2024 LIPID PANEL WITH REFLE X triglyceride s w/ reflex LDL 152 mg/dL 30-150 high Refer ence Range s: <150 mg/dl Annalisa l 150-1 99 mg/dl Borde rline High 200-4 99 mg/dl High >500 mg/dl Very High Not Available [facility] [address] [place], [address] 04/11/2024 19:24:04/11/20 24 04/11/2024 LIPID PANEL WITH REFLE X cholesterol 204 mg/dL 100-20 0 high Not Available [facility] [address] [place], [address] 04/11/2024 19:24:04/11/2004/11/2024 LIPID PANEL WITH REFLE X LDL cholesterol calculated 130.6 mg/dL 0-100 high Natio nal Ifeoma stero l Educa tion Progr am sugge sts the follo wing refer ence range : Optim al <100 mg/dL Near optim al/ab ove optim al 100-1 29 mg/dL Borde rline high 130-1 59 mg/dL High 160-1 89 mg/dL Very high >190 mg/dL Not Available [facility] [address] [place], [address] 04/11/2024 19:24:04/11/20 24 04/11/2024 LIPID PANEL WITH REFLE X HDL cholesterol 43.0 mg/dL 40-60 normal Major risk facto r for CHD: <40 mg/dL Negat angeles risk facto r for CHD: >=60 mg/dL Not Available [facility] [address] [place], [address] 04/11/2024 19:24:04/11/2004/11/2024 LIPID PANEL WITH REFLE X chol HDL ratio 4.74 Risk CHOL/ HDL CHOL/ HDL Ratio Male Femal e 1/2 AVERA GE 3.43 3.27 AVERA GE 4.97 4.44 2 X AVERA GE 9.55 7.05 3 X AVERA GE 23.39 11.04 Not Available [facility] [address] [place], [address] 04/11/2024 19:24:04/11/2004/12/2024 HEPAT ITIS C ANTIB CHRIS hepatitis C virus antibody NONREA CTIVE nonrea ctive Nonre activ e/Ant ibodi es to HCV not detec chaitanya; does not exclu de early acute HCV infec tion Non React [place] Antib odies to Hepat itis C virus not detec chaitanya: does not exclu de early acute infec tion. Not Available [facility] [address] [place] [address], [address] 04/12/2024 14:48:55 04/11/20 24 04/12/2024 ESTRA DIOL, SERUM /PLAS MA estradiol, serum/plasma 39.6 pg/mL Folli cular Phase : 12.5- 166 pg/mL Lutea l Phase : 43.8- 211 pg/mL Ovula tion Phase : 85.8- 498 pg/mL Postm enopa usal: <5-54 .7 pg/mL Not Available [facility] [address] [place] [address], [address] 04/12/2024 14:49:57 04/11/20 24 04/12/2024 FOLLI PRASANTH STIMU LATIN G HORMO NE follicle stimulating hormone 17.70 mIU/m L Folli cular Phase : 3.50 - 12.50 mIU/m L Ovula tion Phase : 4.70 - 21.50 mIU/m L Lutea l Phase : 1.70 - 7.70 mIU/m L Postm enopa usal: 25.80 - 134.8 0 mIU/m L Not Available [facility] [address] [place] [address], [address] 04/12/2024 14:50:03 04/11/20 24 04/12/2024 LUTEI NIZIN G HORMO NE luteinizing hormone 18.70 mIU/m L Folli cular Phase : 2.4-1 2.6 mIU/m L Ovula tion Phase : 14.0- 95.6 mIU/m L Lutea l Phase :1.0- 11.4 mIU/m L Postm enopa usal: 7.7-5 8.5 mIU/m L Not Available [facility] [address] [place] [address], [address] 04/12/2024 14:50:04 04/11/20 24 04/12/2024 TSH REFLE X FREE T4 free T4 (free thyroxine) TNP NG/dL 0.9-1. 7 Not Available [facility] [address] [place] [address], [address] 04/12/2024 14:50:58 04/11/20 24 04/12/2024 TSH REFLE X FREE T4 TSH reflex free T4 2.61 uIU/m L 0.27-4 .20 normal Not Available [facility] [address] [place] [address], [address] 04/12/2024 14:50:58 04/11/20 24 04/19/2024 PAP IG AND HPV (APTI WI) diagnosis: COMMCHIO REYNOSO FOR INTRA EPITH ELIAL LESIO N OR MALIG ERA . Not Available [facility] [address] [place] [address], [address] 04/19/2024 00:10:23 04/11/20 24 04/19/2024 PAP IG AND HPV (APTI WI) specimen adequacy COMMCHIO T . Satis facto ry for evalu ation . No endoc ervic al compo nent is ident ified . Not Available [facility] [address] [place] [address], [address] 04/19/2024 00:10:23 04/11/20 24 04/19/2024 PAP IG AND HPV (APTI WI) performed by CHRISTIANNE Ni , Cytot td black t (ASCP ) Not Available [facility] [address] [place] [address], [address] 04/19/2024 00:10:23 04/11/20 24 04/19/2024 PAP IG AND HPV (APTI WI) . . . Not Available [facility] [address] [place] [address], [address] 04/19/2024 00:10:23 04/11/20 24 04/19/2024 PAP IG AND HPV (APTI WI) note COMMEN T . The Pap smear is a scree luiz test desig claire to aid in the detec tion of juan ligna nt and malig nant condi tions of the uteri ne cervi x. It is not a diagn ostic proce dure and shoul d not be used as the sole means of detec ting cervi evi cance r. Both false -posi tive and false -nega tive repor ts do occur . Not Available [facility] [address] [place], [address] 04/19/2024 00:10:23 04/11/20 24 04/19/2024 PAP IG AND HPV (APTI [place]) test methodology CHRISTIANNE Chiang This liqui d based ThinP rep(R ) pap test was vega rangel with the use of an image guide sandhya abreu. Not Available [facility] [address] [place], [address] 04/19/2024 00:10:23 04/11/20 24 04/19/2024 PAP IG AND HPV (APTI [place]) HPV aptima NEGATI VE negati ve This nucle ic acid ampli ficat ion test detec ts fourt een high- risk HPV types (16,1 8,31, 33,35 ,39,4 5,51, 52,56 ,58,5 9,66, 68) witho ut diffe renti ation . Perfo rmed at: 01 - [facility] [place] [address], [place] [address] Lab Direc tor: Parvez kim MD, Phone : [phone] Perfo rmed at: 02 - [facility] [place] [address], [place] [address] Lab Direc tor: Parvez kim MD, Phone : [phone] Not Available [facility] [address] [place] [address], [address] 04/19/2024 00:10:23 04/16/20 22 04/11/2022 XR, chest , 2 view [facility] [address] [place] [address] XRay Report Signed Christiano t: Bill García MR#: [id number] : 1975 Acct:A [id number] Age/Se x: 46 / F ADM Date: Loc: NINOSKA Brown Attend ing Dr: Britney mcclelland PA-C Orderi ng Physic rin: Britney mcclelland Date of Servic e: Proced ure(s) : XR chest 2V Access ion Number (s): [id number] H cc: Ngoc Valiente EXAM: XR chest 2V CLINIC AL INDICA TION: Acute shortn ess of breath COMPAR VIKTORIYA: None FINDIN GS: No overt acute airspa ce diseas e No overt pleura l effusi ons. No visibl e pneumo thorax . The cardio medias tinal silhou ette appear s normal . There are visibl e degene rative change s thorac ic spine. This study is very insens itive for detect ion of for non-co mpress ion spinal fractu res and for detect ion of osseou s lesion s due to presen ce of tissue summat ion imagin g artifa cts, as well as for soft tissue pathol ogy. It is also relati vely insens itive for detect ion of pulmon mike nodule s and many thorac ic malign ancies . Electr onical ly Signed in Francois cribe By Ian Cordero MD 139 XR/XR chest 2V IMPRES MINESH: No acute cardio pulmon mike pathol ogy identi fied. Additi onal findin gs as above. Dictat ed By: Ian Cordero Signed By: [id number] DD/DT: 1726 TD/TT: 1728 Transc riptio nist: DAVID [email or web address] Radiology Department [address] [place], [address], 04/16/2022 16:14:16 04/16/20 22 04/11/2022 XR, chest , 2 view No observ ation record ed. [email or web address] (Central Scheduling) [address] [place], [address], 04/16/2022 16:14:17 05/16/20 22 05/13/2022 MAMMO , brente luiz bilat eral [facility] [address] [place] [address] Mammog milli Report Signed Patien t: Bill García MR#: [id number] : 1975 Acct:Irish [id number] Age/Se x: 46 / F ADM Date: Loc: HE.AMA M Attend ing Dr: Britney mcclelland PAYomi Orderi ng Physic rin: Britney mcclelland Result s: 2Benig n Findin gs Date of Servic e: Follow Up: 1 Year From Origin al Mammog jennifer Proced ure(s) : MM screen ing mammo BI Access ion Number (s): [id number] H cc: Ngoc Valiente EXAM: MM screen ing mammo BI Reason for exam: Screen ing mammog milli COMPAR VIKTORIYA: None. TECHNI QUE: 2-D full field digita l mammog milli images were obtain ed. Additi onal inform ation: Christiano fish does not know where her prior mammog delmar were perfor med. FINDIN GS: Exam was perfor med with the assist ance of CAD interp retati on. There are scatte red areas of fibrog landul ar densit y. There are no masses , suspic ious cluste rs of microc alcifi cation s or areas of lisa ectura l distor tion. Christiano fish report edly does not know where her prior mammog delmar were perfor med. This will be treate d as a baseli ne mammog jennifer. Benign -appea ring findin gs. Electr onical ly Signed in Francois cribe By Lizeth castro MD 042 MM/MM screen ing mammo BI IMPRES MINESH: No eviden ce of malign lane. Recomm end ANNUAL mammog raphic screen ing. DENSIT Y: B: Scatte red Areas of Fibrog landul ar Tissue BI-RAD S CODE: 2: Benign Findin gs Recomm end contin ued annual breast cancer screen ing per ACR Approp riaten ess Criter ia. Christiano fish was entere d into a remind er system with target date for their next mammog jennifer. Dictat ed By: Lizeth castro Signed By: 1248 DD/DT: 1526 TD/TT: 1543 Transc riptio nist: [facility] Radiology Department [address] [facility], [place], [address], 05/19/2022 09:07:11 07/21/19 25 05/16/2024 MAMMO , scree luiz, tomos ynthe sis, bilat eral No observ ation record ed. [facility] [address], [place], [address], 07/30/2024 12:11:11 Result Notes None recorded. Problems Name Problem SNOMED Code Status Onset Date Resolution Date Notes Provider Name and Address Organization Details Recorded Time Migraine 75954490 Active 2021 Taryn Cuadra che CCMA null, [facility] 2 15:30:17 Hypertensive disorder 34146989 Active 2021 Tarynemma Cuadra che CCMA null, [facility] 2 15:30:32 Anxiety 27592449 Active 2021 Taryn Venecia ordaz CCMA null, [facility] 2 15:31:29 Vitamin D deficiency 25774166 [facility] 2 15:32:31 Gastroesophage al reflux disease 928560789 Active 2021 Taryn Venecia ordaz CCMA null, [facility] 2 15:33:01 Pain in thoracic spine 637989972 [facility], [facility] 2 15:38:30 Cobalamin deficiency 606567127 Active 2021 FIDELIA Delgadillo [address] [place] [address], [phone], [facility] 2 18:10:49 Hyperlipidemia 08518487 Active 2022 FIDELIA MESSINA [address] [place] [address], [phone], [facility] 3 07:10:47 Problem Notes None recorded. Procedures Surgical History Date Name Laterality Status Provider Name and Address Organization Details Recorded Time 04/11/20 22 PHQ-9 Patient Health Questionnaire completed France Rudy, [facility] 04/08/2022 16:57:23 01/30/20 22 PHQ-9 Patient Health Questionnaire completed Dedra Dai [facility] 01/29/2022 11:20:40 03/09/20 17 Date of Last Mammogram completed Taryn Longo [facility] 10/23/2021 15:33:31 03/25/20 12 Mirena IUD Insertion completed Sam Strange MD [address] [place] [address], [phone], [facility] [facility] 03/25/2012 13:23:54 03/25/20 12 IUD Removal completed Sam Strange MD [address] [place] [address], [phone], [facility] 03/25/2012 13:23:54 tonsillectomy completed Ta Castrejon [facility] 02/26/2012 10:29:10 Imaging Results Imaging Date Name Status LastModified by Organiz ation Details LastModified Time 04/11/2022 XR, chest, 2 view completed [address] Radiology Department [address] [place], [address], 04/16/2022 16:14:16 04/11/2022 XR, chest, [address] view [address] (Central Scheduling) [address] [place], [address], 04/16/2022 16:14:17 05/13/2022 MAMMO, screening, bilateral completed [facility] Radiology Department [address] [place], [address], 05/19/2022 09:07:11 05/16/2024 MAMMO, screening, tomosynthesis, bilateral completed [facility] [address] [place], [address], 07/30/2024 12:11:11 Procedure Notes None recorded. Medical Equipment None Reported. Allergies Allergen ID Allergen Name Allergen Category Reaction Reaction Severity Criticality Documentation Date Start Date Code Code System Note Provider Name and Address Organization Details Recorded Time 85825 Substance with sulfonami de structure and antibacte rial mechanism of action (substanc e) medicatio n rash Not available Not available 02/26/2012 77338 8003 SNOMED Ta Zulayk, HEALTHCARE REPRESENTATIVE null, [place] - [facility] 2 10:29:10 Medications Name Sig Start Date Stop Date Status Note LastModified by Organization Details LastModified Time Mirena 21 mcg/24 hr (up to 8 years) 52 mg intrauter ine device 2011 active 02/2007- first unit- removed before new unit placed Not Available Not Available Not Available doxycycli ne hyclate 100 mg capsule TAKE 1 CAPSULE BY MOUTH TWICE A DAY FOR 7 DAYS active Not Available Not Available No t Available Toprol XL 100 mg tablet,ex tended release Take 1 tablet every day by oral route. 01/29 completed Not Available Not Available Not Available triazolam 0.25 mg tablet TAKE 1 TABLET BY MOUTH 90 MINUTES PRIOR TO DENTAL VISIT active Not Available Not Available No t Available fluconazo le 150 mg tablet active Not Available Not Available Not Available benzonata te 200 mg capsule TAKE 1 CAPSULE BY MOUTH THREE TIMES A DAY FOR 7 DAYS active Not Available Not Available No t Available metoprolo l succinate ER 50 mg tablet,ex tended release 24 hr TAKE 1 TABLET BY MOUTH TWICE A DAY active Not Available Not Available No t Available prednison e 20 mg tablet TAKE 2 TABLETS BY MOUTH EVERY DAY FOR 5 DAYS active Not Available Not Available No t Available feverfew 100 mg capsule Take by oral route. 06/12 completed Not Available Not Available Not Available Tessalon Perles 100 mg capsule Take 1 capsule 3 times a day by oral route for 5 days. 06/12 completed Not Available Not Available Not Available cyanocoba emerson (vit B-12) 1,000 mcg/mL injection solution INJECT 1 ML ONCE WEEKLY FOR 4 WEEKS active Not Available Not Available No t Available omeprazol e 20 mg capsule,d elayed release Take 1 capsule every day by oral route. active Not Available Not Available No t Available magnesium 250 mg tablet Take by oral route. active Not Available Not Available No t Available albuterol sulfate HFA 90 mcg/actua tion aerosol inhaler INHALE 1 PUFF 3 TIMES PER DAY active Not Available Not Available No t Available amoxicill in 875 mg-potass ium clavulana te 125 mg tablet TAKE 1 TABLET BY MOUTH EVERY 12 HOURS WITH MEALS FOR 7 DAYS active Not Available Not Available No t Available amoxicill in 500 mg-potass ium clavulana te 125 mg tablet TAKE 1 TABLET BY MOUTH TWICE A DAY FOR 10 DAYS active Not Available Not Available No t Available topiramat e 50 mg tablet Take 1 tablet twice a day by oral route. 2024 active Not Available Not Available Not Avai lable hydrochlo rothiazid e 01/29 completed Not Available Not Available Not Available Zyrtec active Not Available Not Availa ble Not Available Zyrtec 10 mg capsule Take 1 capsule as needed by oral route. 01/29 completed Not Available Not Available Not Available theanine 100 mg capsule once a day 01/29 completed Not Available Not Available Not Available Vitals Date Recorded Body weight Body mass index (BMI) Body height Heart rate Oxygen saturation Oxygen saturation in Arterial blood by Pulse oximetry Systolic blood pressure Diastolic blood pressure Provider Name and Address Organization Details Last Updated DateTime 3 690761. 91 g 36.2 kg/m2 166.37 cm 90 /min 98 % 98 % 122 mm[Hg] 70 mm[Hg] Ruby Zee MA [facility] 3 07:40:33 Date Recorded Body height Body mass index (BMI) Body weight Systolic blood pressure Diastolic blood pressure Provider Name and Address Organization Details Last Updated DateTime 04/11/2024 166.37 cm 36.5 kg/m2 018563.1 g 124 mm[Hg] 76 mm[Hg] Taryn Mosley [facility] 4 11:29:13 Date Recorded Body height Body mass index (BMI) Body weight Heart rate Oxygen saturation Oxygen saturation in Arterial blood by Pulse oximetry Systolic blood pressure Diastolic blood pressure Provider Name and Address Organization Details Last Updated DateTime 5 166.37 cm 36.4 kg/m2 046419. 51 g 66 /min 100 % 100 % 130 mm[Hg] 74 mm[Hg] Taryn Mosley [facility] 5 15:19:43 Date Recorded Body height Body mass index (BMI) Body weight Heart rate Oxygen saturation Oxygen saturation in Arterial blood by Pulse oximetry Provider Name and Address Organization Details Last Updated DateTime 2 166.37 cm 37.2 kg/m2 405569. 47 g 81 /min 97 % 97 % YANDY Amanda [facility] 2 14:02:53 Date Recorded Systolic blood pressure Diastolic blood pressure Provider Name and Address Organization Details Last Updated DateTime 01/29/2022 136 mm[Hg] 82 mm[Hg] FIDELIA Delgadillo [address] [place] [address], [phone], [facility] 01/29/2022 19:15:21 Date Recorded Body height Body mass index (BMI) Body weight Heart rate Oxygen saturation Oxygen saturation in Arterial blood by Pulse oximetry Systolic blood pressure Diastolic blood pressure Provider Name and Address Organization Details Last Updated DateTime 2 166.37 cm 37.2 kg/m2 721676. 87 g 79 /min 99 % 99 % 138 mm[Hg] 92 mm[Hg] Chitra Barraza [facility] 2 16:46:53 Date Recorded Systolic blood pressure Diastolic blood pressure Provider Name and Address Organization Details Last Updated DateTime 04/11/2022 132 mm[Hg] 90 mm[Hg] SAMANTHA Giron [facility] 04/11/2022 17:15:35 Social History Question Answer Notes LastModified by Organizat ion Details LastModified Time Tobacco Smoking Status Former Smoker socially [facility]/29/[facility]22 07:31:46 Do You Have An Advance Directive? Yes HCProxy #1 - Sharan García () And HCProxy #2 - Gisell Ni (mother)? ? ? [email or web address] Information not available 06/12/2023 What Is Your Level Of Alcohol Consumption? Moderate 3-5 X A Week [email or web address] Information not available 04/11/2022 What Is Your Level Of Caffeine Consumption? Moderate 2 Cups Daily Information not available 01/29/2022 What Type Of Diet Are You Following? REGULAR Trends Toward Vegatarian Information not available 04/11/2022 When Did You Quit Smoking? 6-10yearssi ncelastciga rette [email or web address] Information not available 04/11/2024 Date Of Tobacco Screen 04/11/2024 [email or web address] Information not available 04/11/2024 Are You A Past Or Present Victim Of Abuse? No Information not available 02/26/2012 Illicit Drugs No Information not available 02/26/2012 Marital Status Informatio n not available 02/26/2012 What Was The Date Of Your Most Recent Tobacco Screening? 04/11/2024 [email or web address] Information not available 04/11/2024 Are You Sexually Active? Yes Information not available 02/26/2012 Do You Use Any Illicit Or Recreational Drugs? No [email or web address] Information not available 10/23/2021 Do You Or Have You Ever Used Any Other Forms Of Tobacco Or Nicotine? No Information not available 01/29/2022 Sex: Unknown Functional Status Question Answer Note LastModified by Organizat ion Details LastModified Time What is your exercise level? Occasional walk 3x a week Information not available 04/11/2022 Mental Status None recorded. Family History Relationship Description Onset Age of this Age Resolved Age Notes LastModified by Organization Details LastModified Time Paternal Grandmother Malignant tumor of breast previo usly record ed as breast cancer [email or web address] [id number] Not available 04/12/2013 03:01:24 Paternal Grandmother Malignant tumor of colon [email or web address] Not available 2021 07:33:41 Paternal Grandmother Disorder of eye [email or web address] Not available 2021 07:34:41 Mother Problem Fibrom yalgia [id number] Not available 04/12/2013 03:01:24 Mother Malignant neoplasm of skin [email or web address] Not available 10/23/2021 15:35:35 Mother Asthma [email or web address] Not available 0 01/29/2022 07:33:27 Maternal Grandmother Malignant neoplastic disease severs l types (previ ously record ed as cancer -other ) [email or web address] [id number] Not available 04/12/2013 03:01:24 Maternal Grandmother Malignant tumor of thyroid gland [email or web address] Not available 10/23/2021 15:36:24 Maternal Grandmother Lymphosarcom a [email or web address] Not available 10/23/2021 15:36:58 Father Diabetes mellitus previo usly record ed as diabet es [email or web address] [id number] Not available 04/12/2013 03:01:24 Father Hypertensive disorder [email or web address] Not available 10/23/2021 15:34:50 Father Malignant tumor of prostate [email or web address] Not available 10/23/2021 15:35:10 Unspecified Relation Asthma Sibrula g [email or web address] Not available 01/29/2022 07:33:27 Paternal Uncle Malignant tumor of prostate [email or web address] Not available 2021 07:34:00 Paternal Uncle Disorder of eye [email or web address] Not available 2021 07:34:41 Notes:heart disease Medical History Condition Response frequent headaches/migraines Y high blood pressure Y Gynecological History Statement/Question Response 0 Abortions none Contraception Date of Last Mammogram 03/09/2017 History of abnormal pap yes 20+ years ag o Age at Menarche 12 Obstetrics History GPAL:G 0 P 0 0 0 0 Immunizations Vaccine Type Date Status Note Provider Nam e and Address Organization Details Recorded Time Influenza, split virus, quadrivalent, preservative 9 completed YANDY Mehta null, [facility] 10/23/2021 15:29:43 COVID-19, mRNA, LNP-S, PF, 100 mcg/0.5mL dose or 50 mcg/0.25mL dose 1 completed ALISON GironA null, [facility] 04/08/2022 11:06:23 Influenza, split virus, quadrivalent, preservative 1 completed France Grant RMA cathleen, [facility] 04/08/2022 11:06:56 COVID-19, mRNA, LNP-S, PF, rizwana-sucrose, 30 mcg/0.3 mL 4 completed Iliana Hinojosa LPN null, [facility] 04/20/2024 15:51:44 Influenza, MDCK, trivalent, PF 4 completed Iliana Hinojosa LPN [facility] 04/20/2024 15:51:44 Past Encounters Encounter ID Performer Location Encounter Start Date Encounter Closed Date Diagnosis/Indication Diagnosis SNOMED-CT Code Diagnosis ICD10 Code Diagnosis Note [id number] [facility] for [facility] [address], [address] [place] [address] 02/26/2012 09:53:15 02/26/2012 11:09:54 [id number] [facility] for [address], [address] [place] [address] 03/25/2012 12:55:26 03/25/2012 14:39:08 [id number] Sienna Valiente MD [facility] [address] [address] 01/29/2022 13:48:21 01/29/2022 14:59:28 Obesity 003690765 E66.9 We have discussed the adverse health consequenc es of obesity today as well the benefits of weight loss. We have focused on both diet and exercise management strategies in our discussion today. Will continue to monitor and assess. Anxiety 79677620 F41.9 Chronic anxiety for about 7 yearsPatie nt denies concerns about low mood/depre ssion although she had mildly positive PHQ-9There seems to be some situationa l/environm ental component as they are dealing with a difficult family/clarence sing situationP atient had bad experience with medication in the past, although she is unsure which medication Patient has been using CBD as needed with good effectWe discussed options for anxiety treatment including medication and behavioral resourcesP atient is not interested in medication s at this timeIs interested in pursuing counseling and resources were provided for her todayFollo w-up 1 to 3 months, sooner if needed Gastroesop hageal reflux disease 777274644 K21.9 GERD with no known history of Burton's esophagusM anaged with omeprazole 20 mg daily Hypertensive disorder 38 342172 I10 Managed with metoprolol 50 mg extended release dailyPatie nt states this was started several years ago for hypertensi on only and is tolerating wellWe discussed this is no longer first-line for the management of hypertensi on but okay to continue for nowWe will continue to monitor Migraine 14413657 G43.90 9 Managed with topiramate 50 mg twice daily for prevention with good effectPati ent is also taking some over-the-c ounter supplement s including magnesium [id number] Sienna Valiente MD [facility] [address] [facility] [address] [address] 04/11/2022 16:34:24 04/11/2022 17:14:31 Adult health examination 192369941 Z00.00 Patient should discuss medical decisions with Health Care Proxy. Recommende d screenings included colonoscop y screening age 45, earlier based on family history/ri sk factors; annual mammogram age 50, unless earlier based on risk factors and discussion with patient; bone density age 65, unless risk factors for earlier screening; one time screen for hepatitis C if born between 8719-1347 or has risk factors. Recommend annual low-dose CT scan screening for high-risk individual s ages 50 to 80 years with 20 pack-year history of smoking and current smoker or quit within past 15 years. Reviewed vaccines and current recommenda tions. Basic health topics include aerobic exercise, importance of healthy/ba lanced diet and minimizing caffeine and alcohol. Pt declined Char has plans for covid booster and flu vaccine at pharmacy upcoming Pt states last pap (presumabl y with HPV) was in 2019 ;she will look for recordsAgr eed to mammogram and colonoscop y after discussion of risk and benefit Reviewed her recent labs and agreed to check lipids Screening mammography 24 150828 Z12.31 Screening for malignant neoplasm of colon 707127947 Z12.11 Hypertensive disorder 38 489517 I10 Mild elevation in BPManaged with metoprolol 50 mg extended release dailyPatie nt states this was started several years ago for hypertensi on only and is tolerating wellWe discussed this is no longer first-line for the management of hypertensi onFollow up 2 weeks with home BP numbersCon cotton stripper adding 1st line agent Migraine 24339068 G43.90 9 Managed with topiramate 50 mg twice daily for prevention with good effectPati ent is also taking some over-the-c ounter supplement s including magnesium Chronic cough 74412525 R 05.3 Persistent cough since covid infection 3 weeks agoRhonchi on exam cleared with coughCHeck chest xrayWill send art lua for her to tryCall if fever, or worsening coughIf SOB, chest pain , dizziness o to EDF/U 2 weeks Cobalamin deficiency 190 623072 E53.8 Patient taking oral b12 for the past monthCheck in 2 months [id number] Sienna Valiente MD [facility] [address] [facility] [address] [address] 06/12/2023 07:34:17 06/12/2023 08:20:13 Hypertensive disorder 09873384 I10 BP stable (122/70) on arrival.Ma naged with Metoprolol Succinate ER 50mg daily.Chec k renal function and lytes today.Cont inue same regimen.De nies any CV symptoms.R ecommended DASH diet, low salt, and exercise.F ollow up 6 months. Migraine 74450993 G43.90 9 Migraines well managed with Topamax 50mg BID, Mag supplement , and herbal supplement .Migraine occurrence is now one every 2-3 months, lasting 3-5 days although mild symptoms.C heck mag levels today. Obesity 522540171 E66.9 BMI 36.2.We have discussed the adverse health consequenc es of obesity today as well the benefits of weight loss.We have focused on both diet and exercise management strategies in our discussion today.Will continue to monitor and assess.Marilyn ck A1c, TSH, and lipids. Left flank pain 35623477 9 R10.9 Patient with mild chronic left flank pain (unknown etiology). Reports ED work up several years ago was normal.I am unable to palpate a mass along region and there is no dermatomal rash.There is minimal left CVA tenderness on exam.UA dipstick without evidence of infection of blood.Send urine culture. Screening for malignant neoplasm of breast 616511823 Z12.39 Due for screening mammogram. Administra tion of diphtheria, pertussis, and tetanus vaccine 159491721 Z23 TDAP vaccine sent to pharmacy. Vitamin D deficiency 347 46769 E55.9 Hx of vitamin D deficiency , check levels today. Cobalamin deficiency 190 991990 E53.8 Hx of cobalamin deficiency , previously on B12 injections weekly.Las t prescribed in 01/2022.Marilyn ck levels today. Gynecologi c examination 51661127 Z01.419 EMULSIFICATION OPERATOR referral sent per patient wishes. [id number] Sienna Valiente MD [facility] [address] [facility] [place] [address] 04/11/2024 11:19:25 04/11/2024 12:22:08 Adult health examination 460377962 Z00.00 Patient should discuss medical decisions with Health Care Proxy. Recommende d screenings included colonoscop y screening age 45, earlier based on family history/ri sk factors; annual mammogram age 40, unless earlier based on risk factors and discussion with patient; bone density age 65, unless risk factors for earlier screening; one time screen for hepatitis C if born between 2303-1858 or has risk factors. Reviewed vaccines and current recommenda tions. Basic health topics include aerobic exercise, importance of healthy/ba lanced diet and minimizing caffeine and alcohol. Screening mammography 24 643155 Z12.31 Administra tion of diphtheria, pertussis, and tetanus vaccine 972867373 Z23 Screening for malignant neoplasm of cervix 143451162 Z12.4 Screening for malignant neoplasm of colon 580247817 Z12.11 Advance care planning 71 6338531 Z71.89 Document completed today Hepatitis C screening 41 3042730 Z11.59 The USPSTF recommends one time screening for hepatitis C virus (HCV) infection in adults aged 18 to 79 years. Influenza vaccine needed 3980826818 106 Z23 Patient recommende d to go to their local pharmacy to have influenza vaccine administer ed. Discussed importance of influenza vaccine due to the patient's risk of contractin g the disease. A handout was offered to enhance understand ing of the effects and side effects of the vaccine. Gastroesop hageal reflux disease 208372272 K21.9 10 yr history of PPI use Perimenopausal state 916 3398611 16193 Z78.0 [id number] Sienna Valiente MD [facility] [address] [facility] [place] [address] 07/18/2024 15:14:39 07/18/2024 15:36:26 Acute otitis media 3108979 H66.92 antibiotic treatment x six days with worsening ear congestion stop amoxicilli nTM intact retracted+ erythemano dischargeE AC is clear Otalgia of left ear 1010 982699 H92.02 left ear sharp intermitte nt pain+ fullness+ ear pressurePt understand s to administer prednisone on a full stomachone week follow upconsider ENT if not improving, worse pain any new symptoms Health Concerns Section Related Observation LastModified by Organization Detai ls LastModified Time None Recorded Concern Status LastModified by Organization Details LastModified Time None Recorded Advance Directives Directive Y: HCProxy #1 - Sharan almaguer () and HCProxy #2 - Gisell Ni (mother)? ? ? Payers Encounter Date Sequence Insurance Name Policy Number Policy Estevez Covered Member ID Estevez Member ID Guarantor Name 01/29/2022 1 [facility] [id number] Char García [id number] 1 Char García 04/11/2022 1 [facility] [id number] Char García [id number] 1 Char García 06/12/2023 1 [facility] [id number] Char García [id number] 1 Char García 04/11/2024 1 [facility] [id number] Char García [id number] Char García 07/18/2024 1 [facility] [id number] Char Ricky [id number] Char García Notes Date Note Type Note Provider Name and Address Organization Details Recorded Time 2 text/html Pt. presents in office today for NPOV and medication review. Pt. would like to talk about periodic anxiety. - DAVID Pardo is a 46 YO F with anxiety, GERD, HTN, migrainesShe presents today to establish care and discuss anxiety1) HTNPatient reports she has been taking metoprolol for many yearsShe states this was started by a machine hose cutter for her blood pressure but denies any other cardiac disease She tolerates well2) MigrainesPatient uses topiramate for prevention with good effectShe did meet with a neurologist in [place] years ago but does not recall the specificsShe states she is using supplements as needed for abortive effect i.e. magnesium3) GERDTaking omeprazole for GERDFeels symptoms are well controlledReports no history of EGD/Barretts4) AnxietyPatient feels anxious most days of the week and has intermittent sensation of wanting to crawl out of my skin Patient reports anxiety started about 7 years ago when her father was diagnosed with metastatic prostate cancerThis has worsened over the past year when her and her move from [place] to [place] to live next-door to her parentsShe reports this has been a difficult situation with family conflict, trust issues, feeling controlled by her parentsFeeling like I am 17 years old again Her and her have plans to move to [place] in the next few weeks which she hopes will alleviate the stress of the situationShe has had a few panic attack, states she has Ativan or diazepam at home in the cabinet (from the dentist) but has not had to useShe has been using CBD supplement as needed with goodShe is not very comfortable with daily medicationPatient had some experience with medication (unknown) in the past which she felt contributed to weight gain and worsening mental health i.e. not wanting to leave the houseShe she denies significant low mood or suicidal ideas Sienna Valiente MD [address] [facility], [place], [address], [facility] 01/30/2022 11:51:32 2 text/html Pt presents to office today for her annual physical exam. Pt is UTD with her Covid x 1 and Flu (2020) vaccines. [facility] She was last seen for a NPOV on 01/29/22 - No record of last Mammogram or Hep C screening - ck Char is a 46 YO F with anxiety, GERD, HTN, migrainesShe presents today for CPEHer family history is significant for DM, thyroid cancer, breast cancer in paternal GM (older age at onset) , patient is unsure if she has family hx of colon cancerShe has no smoking history Recent labs revealed low g10Kwngmba was prescribed injection b12 but refusedNow taking oral b12 2500 mcg SL QD She reports intermittently productive (often dry) cough x 3 weeks since she had covidNo significant chest pain or SOBNo exertional symptoms or dizzinessNo rhinorrhea, pharyngitis or post nasal dripshe tried taking mucinex without relief Sienna Valiente MD [address] [facility], [place], [address], [facility] 04/15/2022 07:33:18 3 text/html Patient presents to the office for a f/u on HTH and headaches. DW 47 YO F with hx of anxiety, GERD, cobalamin deficiency, HTN, migraines, vitamin D deficiency.Presents to office today for follow up HTN and migraines.1) HTNManaged with Metoprolol Succinate ER 50mg daily.Med was initiated by cardiology in [place] at the age of 21.Not checking BP at home.BP WNL at 122/70 on arrival.Previously on HCTZ which was d/c as it was ineffective.Reports at times she will experience a twinge of pain throughout random areas of her chest which resolves in a few seconds if she talks herself down .She notes symptoms occur 1-2x/week ; usually at night time.She attributes symptoms to anxiety as she is experiencing family drama .She also reports her work can get frustrating ; 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.She notes2) Migraines: controlledReports migraine occurrence is every 2-3 months which can last up to 3-5 days at a time ; reports she can function with migraines now.She notes that she has previously received a magnesium drip (outpatient treatment) ; last treatment 5-6 years ago which she notes was useful.She takes a magnesium supplement daily.She also uses a herbal supplement which has helped with migraine prevention.She takes Topamax 50mg BID which was prescribed by neurology.Previously on Sumatriptan which helped although was expensive and therefore stopped using for abortive treatment.Denies any nausea, vomiting, no visual disturbances.3) Cobalamin Deficiencypreviously on B12 supplement4) TDAP vaccineAgreeable5) Referral to EMULSIFICATION OPERATOR needed for pelvic exams (prefers female provider)6) L flank pain ; persists (mild)Reports she was evaluated for symptoms in the ED 5-6 years ago and all work up was normal . Sienna Valiente MD [address] [place] [address], [phone], [facility] 06/15/2023 18:03:19 4 text/html pt presents today for annual CPE, pt last seen 06/12/23 for htn, last cpe 04/11/22. RL Covid: 06/26/21 scheduled next week at pharmFlu: 06/26/21 scheduled next week at pharmTdap (or Td): dueSmoking status:Hep C screen: 04/08/24Pap: 02/26/12, needs one doneMammogram: 05/13/22Colonoscopy: dueHealthcare Proxy (everyone over 18) - DUE Char García, age 48 yrs presents for CPEMensesMirena, + vaginal flow some months like a reg menses, can be very lightPatient inquires about aditya menopausal state and labs Sexual Activityno sexual activity for one yearpositive relationship with partnerMale partnerlow libido Sienna Valiente MD [address] [place], [phone], [facility] 04/21/2024 13:22:05 5 text/html pt presents today for left ear pain. RL Char García, age 48 yrs presents for left ear pain. Recently evaluation at urgent care for left OMStarted Amoxicillin. Taking as directedModerate to severe ear pressure and intermittent sharp ear pain on leftno ear discharge, no fever, chills Sienna Valiente MD [address] [facility], [place], [phone], [facility] 07/19/2024 11:25:32 OBGyn Episode No OBEpisode recorded.
--- OUTSIDE RECORDS SUMMARY | 2024-09-22 18:43 | XMS_ITS | Encounter Summary ---
Author Organization [facility] Address [address] [place] [id number] Care Team Providers Care Paint Booth Operator Name Role Phone Dobbins Winter HAWKINS Primary Care Provider [phone] Reason for Visit * Reason Comments Ear Fullness Encounter Details Date Type Department Care Team (Latest Contact Info) Description 09/15/2024 9:30 AM EST Clinical Support [facility] [address], [place] [phone] Niranjan Cisneros MD [address] [place] [address] [phone] Selena Mcleod Au.D [address] [place] [phone] Otalgia of both ears (Primary Dx); Other abnormal auditory perceptions, bilateral; Tinnitus of both ears; Eustachian tube dysfunction, bilateral Social History Tobacco Use Types Packs/Day Years [...] Orientation Heterosexual (straight) 08/31 9:47 AM EST documented as of this encounter Last Filed Vital Signs Vital Sign Reading Time Taken Comments Blood Pressure - - Pulse - - Temperature - - Respiratory Rate - - Oxygen Saturation - - Inhaled Oxygen Concentration - - Weight 99.8 kg (220 lb) 09/15/2024 9:53 AM EST Height 165.1 cm (5' 5 ) 09/15/2024 9:53 AM EST Body Mass Index 36.61 09/15/2024 9:53 AM EST documented in this encounter Progress Notes * Niranjan Cisneros MD - 09/15/2024 9:30 AM EST Images from the original note were not included. [address] [facility], [facility] [id number] Loc: [phone] Encounter Date: 09/15/2024 Chief Complaint Patient presents with Ear Fullness 1. Other abnormal auditory perceptions, bilateral - Audiometry 2. Otalgia of both ears - Audiometry 3. Tinnitus of both ears - Audiometry 4. Eustachian tube dysfunction, bilateral - fluticasone (FloNASE) 50 mcg/spray nasal spray; 2 sprays into each nostril 2 times a day. Dispense: 1 each; Refill: 3 ASSESSMENT AND PLAN Char García is a 49-year-old female presenting with symptoms of ear blockage and oral fullness that started after a head cold on July 08, 2024. She reports the sensation is worse on the left side, intermittent tinnitus, occasional lightheadedness, and double vision. She has a history of ear in fection treated with multiple antibiotics and prednisone without relief. No significant history of recurrent ear infections in childhood. Audiogram today demonstrates normal hearing in both ears withtype A normal tympanometry. The differential includes possible residual eustachian tube dysfunction, musculoskeletal issues related to jaw clenching/grinding, or subtle inner ear damage post-infection. - Prescribe Flonase nasal spray: 2 sprays per nostril twice daily for 2-4 weeks - Warm compresses to the area under the ear and jaw joint once or twice daily - NSAIDs (ibuprofen or Motrin) as needed, every 8 hours for 2-3 days - Jaw rest: avoid crunchy or chewy foods for a few days - Consider white noise or a fan for tinnitus masking - Follow-up hearing test in 6 months or sooner if new symptoms arise HISTORY OF PRESENT ILLNESS Char García reports ear blockage and oral fullness since July 08, 2024, following a head cold. Symptoms are worse on the left side and include intermittent tinnitus, occasional lightheadedness,and double vision. She was treated with amoxicillin, Augmentin, another antibiotic, and prednisone without relief. No childhood history of recurrent ear infections. Occasional ear popping with altitude changes and seasonal allergies. She grinds her teeth at night. No recent swelling of the neck or face. PHYSICAL EXAM The patient was in no acute distress and breathing comfortably on exam. Examination of the ears, nose, oral cavity, oropharynx, and neck was completed and found to be within normal limits with the following notable exceptions and findings highlighted here: - Audiogram: Normal hearing in both ears - Tympanometry: Type A normal - Physical exam: No visible fluid or inflammation in ears, normal nasal and oral examination, no swelling in the neck DIAGNOSTIC TESTING REVIEWED Audiogram performed today demonstrates normal hearing in both ears with type A normal tympanometry.Slight five-decibel difference at one frequency on the left ear noted. PAST MEDICAL HISTORY History reviewed. No pertinent past medical history. History reviewed. No pertinent surgical history. History reviewed. No pertinent family history. Social History Tobacco Use Smoking status: Former Current packs/day: 0.00 Types: Cigarettes Quit date: 07/13/2018 Years since quittin.1 Passive exposure: Never Smokeless tobacco: Never Substance Use Topics Alcohol use: Yes Drug use: Yes Types: Marijuana MEDICATIONS Current Outpatient Medications: cetirizine (ZyrTEC Allergy) 10 MG tablet, , Disp: , Rfl: Cholecalciferol (D3 2000) 2000 UNITS Cap capsule, , Disp: , Rfl: coenzyme Q10 (CoQ10) 100 MG capsule, , Disp: , Rfl: Cranberry-Vitamin C-Probiotic (AZO Cranberry) 250-30 MG Tab, , Disp: , Rfl: Feverfew 380 MG Cap, , Disp: , Rfl: fluticasone (FloNASE) 50 mcg/spray nasal spray, 2 sprays into each nostril 2 times a day., Disp: 1 each, Rfl: 3 Mag Threonate-Niacinamide ER 500-250 MG Tab CR, , Disp: , Rfl: Metoprolol Succinate 100 MG Capsule ER 24 Hour Sprinkle, Take 50 mg by mouth., Disp: , Rfl: OMEprazole 20 MG Tablet Delayed Response, , Disp: , Rfl: topiramate (TOPAMAX) 50 MG tablet, , Disp: , Rfl: ALLERGIES Allergies Allergen Reactions Sulfa Antibiotics Hives, Rash/Dermatitis and Swelling VISIT ORDERS 1. Other abnormal auditory perceptions, bilateral - Audiometry 2. Otalgia of both ears - Audiometry 3. Tinnitus of both ears - Audiometry 4. Eustachian tube dysfunction, bilateral - fluticasone (FloNASE) 50 mcg/spray nasal spray; 2 sprays into each nostril 2 times a day. Dispense: 1 each; Refill: 3 Niranjan Cisneros MD documented in this encounter Procedure Notes * Regina Granado - 09/15/2024 9:30 AM ESTAssociated Order(s): AUDIOMETRY Pre-Procedure Diagnose(s): Other abnormal auditory perceptions, bilateral; Otalgia of both ears; Tinnitus of both ears Images from the original note were not included. documented in this encounter Plan of Treatment Upcoming Encounters Date Type Department Care Team (Late st Contact Info) Description 03/27/2025 9:00 AM EDT Clinical Support [facility] [address] [phone] Selena Mcleod Au.D [address] [place] [phone] 03/27/2025 9:30 AM EDT Office Visit [facility] [address] [phone] Niranjan Cisneros MD [address] [place] [phone] documented as of this encounter Procedures Procedure Name Priority Date/Time Associated Diagnosis Comments AUDIOMETRY Routine 09/15/2024 9:30 AM EST Other abnormal auditory perceptions, bilateral Otalgia of both ears Tinnitus of both ears AUDIOMETRY Routine 09/15/2024 9:30 AM EST Other abnormal auditory perceptions, bilateral Otalgia of both ears Tinnitus of both ears documented in this encounter Results * Audiometry (09/15/2024 9:30 AM EST) Narrative Selena Mcleod Au.D - 09/15/2024 9:30 AM EST Regina Granado ? 09/15/2024 ??9:43 AM Niranjan Cisneros MD [facility] documented in this encounter Visit Diagnoses Diagnosis Otalgia of both ears- Primary Other abnormal auditory perceptions, bilateral Tinnitus of both ears Unspecified tinnitus Eustachian tube dysfunction, bilateral documented in this encounter Care Teams Paint Booth Operator Relationship Specialty Start Date End Date Winter Dobbins, GUT PULLER [address] [place] [address] PCP - General Family Medicine 09/15/24 documented as of this encounter
--- OUTSIDE RECORDS SUMMARY | 2024-09-22 18:43 | XMS_ITS ---
Author Name [facility] Organization Unknown History of Medication Use Medication Directions Dispensed Refills Start Date End Date Stat us topiramate (TOPAMAX) 50 MG tablet active Metoprolol Succinate 100 MG Capsule ER 24 Hour Sprinkle Take 50 mg by mouth. active Cranberry-Vitamin C-Probiotic (AZO Cranberry) 250-30 MG Tab active cetirizine (ZyrTEC Allergy) 10 MG tablet act emelina OMEprazole 20 MG Tablet Delayed Response active coenzyme Q10 (CoQ10) 100 MG capsule active fluticasone (FloNASE) 50 mcg/spray nasal spray 2 sprays into each nostril 2 times a day. 09/15/2024 active Cholecalciferol (D3 2000) 2000 UNITS Cap capsule active Problems Problem Status Onset Date Problem Type Date of Resoluti on Source High blood pressure active 1992-03-13 ProblemAct [facility] Migraine active 2006-11-10 ProblemAct [facility] Eustachian tube dysfunction, bilateral active EncounterDiagnosisAct [facility] Otalgia of both ears active EncounterDiagnosisAct [facility] Tinnitus of both ears active EncounterDiagnosisAct [facility] Other abnormal auditory perceptions, bilateral active EncounterDiagnosisAct [facility] Immunizations Vaccine Date Source Lot Number Status Influenza, Unspecified 04/18/2024 [facility] co mpleted Encounters Encounter Type Encounter Reason Primary Diagnosis Location Date Ambulatory Otalgia, bilateral Otalgia, bilateral [facility] 09/15/2024 Care Team Organization Name Specialty Phone Email Start Date End Da te [facility] 09/20/2024 [facility] Primary [facility] 09/15/2024 [facility] 07/25/2024
== END 2024-09-22 16:22 | disposition home or self-care (01) ==
LOC: HO.HGI 14:57
PROVIDERS: PCP Nurse Practitioner Family; Visit Provider Nurse Practitioner Family
DX: Z01.818 Encounter for other preprocedural examination (principal); Z12.11 Encounter for screening for malignant neoplasm of colon
CPT/HCPCS: S0285

== ENCOUNTER → 2024-09-22 14:57 | Outpatient (BNVA) | payer OTHER, SELFPAY | PROVIDERS: PCP Nurse Practitioner Family; Visit Provider Nurse Practitioner Family ==

== ENCOUNTER 2025-03-16 10:31 | Day surgery (SDC) | payer OTHER, SELFPAY ==
--- OUTSIDE RECORDS SUMMARY | 2025-03-10 10:13 | XMS_ITS | Clinical Summary ---
Author Organization [facility] Address [address] [place] [address] Care Team Providers Care Marine Biologist Name Role Phone Mu Winter HAWKINS Primary Care Provider [phone] Allergies Active Allergy Reactions Criticality Noted Date Comments Sulfa Antibiotics Hives,Rash/Dermatitis,Swelling Medium 09/11/1991 Medications Metoprolol Succinate 100 MG Capsule ER 24 Hour Sprinkle Take 50 mg by mouth. Active topiramate (TOPAMAX) 50 MG tablet Active Feverfew 380 MG Cap Active Mag Threonate-Niaci namide ER 500-250 MG Tab CR Active OMEprazole 20 MG Tablet Delayed Response Active cetirizine (ZyrTEC Allergy) 10 MG tablet Active Cholecalciferol (D3 2000) 2000 UNITS Cap capsule Active coenzyme Q10 (CoQ10) 100 MG capsule Active Cranberry-Vitam in C-Probiotic (AZO Cranberry) 250-30 MG Tab Active fluticasone (FloNASE) 50 mcg/spray nasal sprayIndication s:Eustachian tube dysfunction, bilateral 2 sprays into each nostril 2 times a day. 3 each 3 12/09/2024 Active Active Problems Problem Noted Date Diagnosed Date Migraine 11/10/2006 High blood pressure 03/13/1992 Immunizations Immunization Administration Dates Next Due Influenza, Unspecified 04/18/2024 Social History Tobacco Use Types Packs/Day Years Used Date Smoking Tobacco: Former Cigarettes Q uit: 07/13/2018 Passive Smoke Exposure: Never Smokeless Tobacco: Never Alcohol Use Standard Drinks/Week Comments Yes 0 (1 standard drink = 0.6 oz pur e alcohol) Comments Unknown Sex and Gender Information Value Date Recorded Sex Assigned at Female 08/31/2024 9:47 AM EST Legal Sex Female 9:19 AM EST Gender Identity Female 08/31/2024 9:47 [...] Support [facility] [address] [phone] Selena Mcleod Au.D [address] [place] [phone] 03/27/2025 9:30 AM EDT Office Visit [facility] [address] [phone] Niranjan Cisneros MD [address] [place] [phone] Health Maintenance Due Date Last Done Comments Hepatitis C Virus Screening 1975 HIV Screening 09/11/1988 DTaP/Tdap/Td Vaccines (1 - Tdap) 09/11/1994 Hepatitis B Vaccines (1 of 3 - 19+ 3-dose series) 09/11/1994 Pap Smear (Ages 21-65) 09/11/1996 Mammogram 2015 Colonoscopy 09/11/2020 Influenza Vaccine 02/10/2025 04/18/2024, , 06/26/2021, Additional history exists COVID-19 Vaccine Completed 04/18/2024, 06/26/2021 Pneumococcal Vaccine: Pediatric (0-5 Years) and At-Risk Patients (6 to 49 Years) Aged Out No longer eligible based on patient's age to complete this topic Insurance [employer] HMO Care Teams Marine Biologist Relationship Specialty Start Date End Date Winter Dobbins, SOCIAL MEDIA CONTENT MANAGER [address] [place] [address] PCP - General Family Medicine 09/15/24
--- NOTE | 2025-03-16 11:47 | HO.ANESPROP2 ---
Documented by User: Margarita Contreras NP 03/15/25 10:39 HPI - Anesthesia Eval Consult details Narrative: 49 yr old female for upper endoscopy, colonoscopy PMF Active Problems Active Problems: All Active Problems (Updated 01/24/25 @ 14:20 by Viv Pate [facility]) Diverticulitis (Acute) GERD (gastroesophageal reflux disease) (Acute) Past Medical History Medical History (Updated 01/24/25 @ 14:20 by Viv Pate [facility]) Diverticulitis Family history of colon cancer Nicotine dependence in remission GERD (gastroesophageal reflux disease) HTN (hypertension) Surgical History Surgical History History of tonsillectomy Social History Social History (Updated 01/24/25 @ 13:50 by Adriana Colon) Household Members: Family Alcohol intake: never Patient Tobacco Use Status: Former Tobacco user Advance Directives: No Advance Directives Information Provided: Yes Meds Allergies Allergy/AdvReac Type Severity Reaction Status Date / Time Seasonal Allergies Allergy Mild Sneezing Verified 03/16/25 11:40 Sulfa (Sulfonamide Allergy Unknown Unknown Verified 03/16/25 11:40 Antibiotics) Home Medications ?Medication ?Instructions ?Recorded ?Confirmed ?Last Taken ?Type cetirizine 10 mg tablet (Zyrtec) 10 mg PO DAILY PRN 09/15/24 Unknown History cyanocobalamin (vitamin B-12) 1,000 mcg IM DAILY 09/15/24 Unknown History 1,000 mcg/mL injection solution levonorgestrel (Mirena) intrauterine 09/15/24 Unknown History magnesium 250 mg tablet 250 mg PO DAILY 09/15/24 Unknown History metoprolol succinate 50 mg mg PO 09/15/24 Unknown History tablet,extended release 24 hr omeprazole 20 mg capsule,delayed 20 mg PO DAILY 09/15/24 Unknown History release topiramate 50 mg tablet mg PO DAILY 09/15/24 Unknown History triazolam 0.25 mg tablet mg PO DAILY PRN 09/15/24 Unknown History cholecalciferol (vitamin D3) 50 50 mcg PO DAILY 09/22/24 Unknown History mcg (2,000 unit) capsule fluticasone propionate 50 intranasal 09/22/24 Unknown History mcg/actuation nasal spray,suspension Documented by User: Mariella Ge DO 03/16/25 11:48 PMFSH Past Medical History Medical History (Updated 01/24/25 @ 14:20 by Viv Pate, [facility]) Diverticulitis Family history of colon cancer Nicotine dependence in remission GERD (gastroesophageal reflux disease) HTN (hypertension) Family History Family history of problems with anesthesia: No Surgical History Surgical History History of tonsillectomy History of Problems with Anesthesia: No Social History Social History (Updated 01/24/25 @ 13:50 by Adriana Colon) Household Members: Family Alcohol intake: never Patient Tobacco Use Status: Former Tobacco user Advance Directives: No Advance Directives Information Provided: Yes Meds Allergies Allergy/AdvReac Type Severity Reaction Status Date / Time Seasonal Allergies Allergy Mild Sneezing Verified 03/16/25 11:40 Sulfa (Sulfonamide Allergy Unknown Unknown Verified 03/16/25 11:40 Antibiotics) Home Medications ?Medication ?Instructions ?Recorded ?Confirmed ?Last Taken ?Type cetirizine 10 mg tablet (Zyrtec) 10 mg PO DAILY PRN 09/15/24 Unknown History cyanocobalamin (vitamin B-12) 1,000 mcg IM DAILY 09/15/24 Unknown History 1,000 mcg/mL injection solution levonorgestrel (Mirena) intrauterine 09/15/24 Unknown History magnesium 250 mg tablet 250 mg PO DAILY 09/15/24 Unknown History metoprolol succinate 50 mg mg PO 09/15/24 Unknown History tablet,extended release 24 hr omeprazole 20 mg capsule,delayed 20 mg PO DAILY 09/15/24 Unknown History release topiramate 50 mg tablet mg PO DAILY 09/15/24 Unknown History triazolam 0.25 mg tablet mg PO DAILY PRN 09/15/24 Unknown History cholecalciferol (vitamin D3) 50 50 mcg PO DAILY 09/22/24 Unknown History mcg (2,000 unit) capsule fluticasone propionate 50 intranasal 09/22/24 Unknown History mcg/actuation nasal spray,suspension Exam Exam Date and Time: 9/4/25 1145 Airway Mallampati Class: II TM Dist: >3cm Neck ROM: Full Loose/Missing/Broken Teeth: No (patient denies any loose or broken teeth) Heart: S1S2 Lungs: CTAB Assessment and Plan Assessment Anesthesia Assessment: Anesthesia Plan Discussed and Chart Reviewed Final Anesthetic Review Family History of Problems with Anesthesia: No History of Problems with Anesthesia: No NPO: Yes ASA Class: II Final Preanesthetic Review: No Changes in Pt Med Stat, Meds/Allgs Chart Reviewed, Consent Obtained/Reviewed and Anes Risks/Benef Reviewed Patient Risk: Low Procedure Risk: Low Anesthetic Plan Anesthetic Plan: MAC: and Agree w/ Assess. and Plan Disposition: Standard PACU
[2025-03-16 11:51] VITALS: BP 140/95; PULSE 97; RESP 15; TEMP 36.4; O2SAT 98; BMI 30.8
[2025-03-16] MEDS: Lactated Ringers 1,000 ML 100 ML IVCONT (11:55)
--- NOTE | 2025-03-16 12:03 | MHC.SHP ---
Pre-Procedural Eval Section A - 24 Hr Update-Section A only Date of Service: 03/16/25 Section B - Complete if H&P > 30 days Chief Complaint: gerd, hx of diverticulitis Details of Present Illness: Diverticulitis Family history of colon cancer Nicotine dependence in remission GERD (gastroesophageal reflux disease) HTN (hypertension) Surgical History History of tonsillectomy Present Medications: see Short Stay Collaborative assessment Allergies: Allergies Allergy/AdvReac Type Severity Reaction Status Date / Time Seasonal Allergies Allergy Mild Sneezing Verified 03/16/25 11:40 Sulfa (Sulfonamide Allergy Unknown Unknown Verified 03/16/25 11:40 Antibiotics) Review of Systems Review of Systems Comment: Ten point ROS negative Exam Exam Comment: Gen appear: No acute distress HEENT: no icterus Chest: No overt resp distress Abd: soft, nontender, nondistended Psych: Stable affect, answering questions appropriately Neuro: A/Ox3 noted to move all extremities spontaneously Ext: no peripheral edema Plan Diagnosis/Plan: Unchanged I have reviewed the history and physical and performed a pertinent physical examination on my patient. No changes have occurred unless specified. Time Spent With Patient Time: Total time managing care of this patient today ____ minutes.
[2025-03-16 12:26] LABS: UPreg QC Valid YES
--- NOTE | 2025-03-16 12:49 | P.OPN-COLO_ITS ---
Colonoscopy Operative Note Operative Note Date of Service: 03/16/25 Narrative: Procedure: Upper endoscopy and colonoscopy Indication: GERD, hx of diverticulitis Endoscopist: Nora Abernathy MD Anesthesia Provider: Sisi Kebede CRNA Anesthesia type: MAC Instrument: [id number] and [id number] EGD Procedure:?? The procedure, indications, preparation and potential complications were reviewed with the patient, who indicated understanding and gave written informed consent to proceed. The endoscope was introduced through the mouth, and advanced to the 2nd part of the duodenum. The mucosa was carefully examined on slow withdrawal of the endoscope. The patient tolerated the procedure well. There were no immediate complications.? EGD Findings:? * Esophagus:? Normal esophageal mucosa was noted. The Z-line was at 35 cm and a regular to 34 cm. Cold forceps biopsies were taken to rule out Barretts esophagus. This will also be sent for tissue Cypher if Burton's confirmed. Cold forceps biopsies were taken from middle esophagus to rule out eosinophilic esophagitis. * Stomach:? Normal gastric mucosa. Retroflexion was performed in the cardia. * Duodenum:? Normal duodenal mucosa. Colonoscopy Procedure:? The patient was then turned for the colonoscopy. A digital rectal exam was performed which was normal.? A distal attachment cap was affixed to the tip of the scope and the colonoscope was then inserted through the anus and advanced through the colon and advanced to the cecum at 75 cm and terminal ileum.? Appendiceal orifice and ileocecal valve were identified. Mucosa was carefully examined under high definition white light as the instrument was slowly withdrawn in a retrograde panoramic fashion. Retroflexion was performed in rectum. The procedure was not difficult. The quality of the prep was BBPS: 3+3+3 = adequate Withdrawal time minutes Limitations: No limitations Findings: Mucosa: Normal colon and terminal ileum mucosa. Cold forceps biopsies were taken of the right and left side of the colon to rule out microscopic colitis. Protruding lesions: * Small internal hemorrhoids without stigmata of recent bleeding. Excavated lesions: * Mild diverticulosis of left colon noted Impression: 1. Irregular Z line (biopsy) 2. Normal esophageal mucosa (biopsy) 3. Normal stomach 4. Normal duodenum 5. Normal colon and terminal ileum mucosa (biopsy) 6. Diverticulosis 7. Internal hemorrhoids Recommendations:?? * Follow-up path results * Avoid NSAIDs * Repeat colonoscopy for CRC screening in 10 years.
[2025-03-16 13:20] VITALS: BP 107/81; PULSE 84; RESP 12; TEMP 36.3
[2025-03-16 13:35] VITALS: BP 125/94; PULSE 83; RESP 16; TEMP 36.6; O2SAT 95
== END 2025-03-16 14:36 | disposition home or self-care (01) ==
PROVIDERS: Nurse Practitioner; PCP Nurse Practitioner Family; Visit Provider Internal Medicine
PROC: (CPT 43239; principal; 2025-03-16 12:40)
DX: Z12.11 Encounter for screening for malignant neoplasm of colon (principal); K64.8 Other hemorrhoids; K57.30 Diverticulosis of large intestine without perforation or abscess without bleeding; Z87.19 Personal history of other diseases of the digestive system; Z80.0 Family history of malignant neoplasm of digestive organs; K21.9 Gastro-esophageal reflux disease without esophagitis; K22.9 Disease of esophagus, unspecified; K44.9 Diaphragmatic hernia without obstruction or gangrene; I10 Essential (primary) hypertension; Z87.891 Personal history of nicotine dependence
CPT/HCPCS: 43239; 45380; 81025; 88305; 88313; J2003; J2250; J2704

== ENCOUNTER → 2025-03-16 10:31 | Outpatient (BNV) | payer OTHER, SELFPAY | PROVIDERS: PCP Nurse Practitioner Family; Visit Provider Internal Medicine | DX: Z12.11 Encounter for screening for malignant neoplasm of colon (principal); Z87.19 Personal history of other diseases of the digestive system; K57.90 Diverticulosis of intestine, part unspecified, without perforation or abscess without bleeding; K64.8 Other hemorrhoids; K21.9 Gastro-esophageal reflux disease without esophagitis | CPT/HCPCS: 43239; 45380 ==

== ENCOUNTER 2025-05-10 15:12 | Outpatient (AMB) | payer OTHER, SELFPAY ==
--- NOTE | 2025-05-10 15:18 | A.OFFVIS_ITS ---
Vital Signs 05/10/25 15:19 Height 5 ft 5 in Weight 185 lb BMI 30.8 BP 136/86 Blood Pressure Location Rt brachial Position Sitting Pulse 84 Pulse Source Pulse Oximeter Pulse Oximetry (%) 96 Oxygen Delivery Method Room Air Intake Visit Reasons: S/p egd colo Josemanuel Intake Note: Est pt for mgmt of GERD + Hx of diverticulitis. S/P FUV CC; C.O. having difficulty with making dietary adjustments. Pt is hoping we can make some suggestions as to how to reintroduce a variety of foods back into the bland diet which was being maintained per the diverticulitis. Office Cleaner Required: No Accompanied by: Self / Same As Patient Allergies Seasonal Allergies Allergy (Mild, Verified 03/16/25 11:40) Sneezing Sulfa (Sulfonamide Antibiotics) Allergy (Unknown, Verified 03/16/25 11:40) Unknown HPI HPI S/p egd colo Josemanuel: Details: LAST VISIT: Diverticulitis Abdominal pain, LUQ (left upper quadrant) GERD (gastroesophageal reflux disease) Plan Patient continues to have mild burning like sensation in the left upper quadrant. Diagnosed with descending colon diverticulitis month ago. Was treated with Augmentin. Denies any nausea or vomiting. I will give her script for Cipro for 7 days. Message sent to surgical schedulers to book patient end of February to make sure that she heals completely. Patient will also go for upper endoscopy. Patient tried to go off omeprazole and unable to do for more than couple days. Continue avoiding dietary triggers and late night snacking. Patient will try bland diet for the next few days until finishes antibiotics. Will try introducing fiber slowly. Will take MiraLax daily with Colace. I will see her after the procedure, sooner on as needed basis. Patient is agreeable to current plan of care and verbalizes understanding of instructions. She was given the opportunity to ask questions and all questions answered. ? Thank you for allowing me to participate in her care New polyethylene glycol 3350 (Miralax) 17 grams PO DAILY 510 grams 2RF ciprofloxacin HCl 500 mg PO BID 14 tabs 0RF docusate sodium 100 mg PO BEDTIME 90 caps 3RF K59.00 UPPER ENDOSCOPY AND COLONOSCOPY: EGD Findings:? * Esophagus:? Normal esophageal mucosa was noted. The Z-line was at 35 cm and a regular to 34 cm. Cold forceps biopsies were taken to rule out Barretts esophagus. This will also be sent for tissue Cypher if Burton's confirmed. Cold forceps biopsies were taken from middle esophagus to rule out eosinophilic esophagitis. * Stomach:? Normal gastric mucosa. Retroflexion was performed in the cardia. * Duodenum:? Normal duodenal mucosa. Colonoscopy Procedure:? The patient was then turned for the colonoscopy. A digital rectal exam was performed which was normal.? A distal attachment cap was affixed to the tip of the scope and the colonoscope was then inserted through the anus and advanced through the colon and advanced to the cecum at 75 cm and terminal ileum.? Appendiceal orifice and ileocecal valve were identified. Mucosa was carefully examined under high definition white light as the instrument was slowly withdrawn in a retrograde panoramic fashion. Retroflexion was performed in rectum. The procedure was not difficult. The quality of the prep was BBPS: 3+3+3 = adequate Withdrawal time minutes Limitations: No limitations Findings: Mucosa: Normal colon and terminal ileum mucosa. Cold forceps biopsies were taken of the right and left side of the colon to rule out microscopic colitis. Protruding lesions: * Small internal hemorrhoids without stigmata of recent bleeding.Excavated lesions: * Mild diverticulosis of left colon noted Impression: 1. Irregular Z line (biopsy) 2. Normal esophageal mucosa (biopsy) 3. Normal stomach 4. Normal duodenum 5. Normal colon and terminal ileum mucosa (biopsy) 6. Diverticulosis 7. Internal hemorrhoids Recommendations:?? * Follow-up path results * Avoid NSAIDs * Repeat colonoscopy for CRC screening in 10 years. PATHOLOGY RESULTS Diagnosis A. Esophagogastric junction, biopsy: Squamocolumnar mucosa with minimal chronic inflammation; negative for intestinal metaplasia and dysplasia. B. Esophagus, middle, biopsy: Squamous mucosa with no specific change; no columnar mucosa present. C. Colon, right, biopsy: Colonic mucosa with lymphoid aggregate and no specific change. D. Colon, left, biopsy: Colonic mucosa with lymphoid aggregate and no specific change TODAY'S VISIT Patient is here today for follow-up and to discuss upper endoscopy and colonoscopy results. Patient denies any ill effects from the prep, anesthesia or procedure itself. Patient however reports to having a hard time trying to introduce different food besides very bland food that she has been eating since she was diagnosed with diverticulitis. Both upper endoscopy and colonoscopy results despite cost with patient. Patient had normal colonic mucosa both on the right left side. No suspicion of colitis. Patient has mild diverticulosis in sigmoid colon. Patient denies feeling constipated, taking MiraLax as needed. Patient also has a script for Colace if needed. Patient denies melena, hematochezia, unintentional weight loss or ribbon like stools. Patient denies any mucus in her stool. Denies dyspepsia, dysphagia or odynophagia. Currently she is taking omeprazole daily in her symptoms of acid reflux are suppressed. Upper endoscopy showed normal esophageal mucosa with normal stomach and duodenum. [facility] Medical History (Updated 06/07/25 @ 20:19 by Viv Pate [facility]) Sigmoid diverticulum Diverticulitis Family history of colon cancer Nicotine dependence in remission GERD (gastroesophageal reflux disease) HTN (hypertension) Surgical History History of tonsillectomy Social History Household Members: Family Alcohol intake: never Patient Tobacco Use Status: Former Tobacco user Review of Systems Const Denies weight gain and Denies weight loss ENT Reports no additional complaints, Denies dysphagia and Denies odynophagia Card Reports no additional complaints Resp Reports no additional complaints GI Reports abdominal pain (LUQ), Denies belching, Denies melena, Reports bloating, Denies change in bowel habits, Denies dysphagia, Denies excessive flatus, Denies dyspepsia, Denies heartburn, Denies diarrhea, Denies loose stools, Denies nausea, Denies odynophagia and Denies vomiting Reports no additional complaints Musc Reports no additional complaints Neuro Reports no additional complaints Psych Reports no additional complaints Endo Reports no additional complaints Physical Exam Vital Signs: Last Vital Signs Pulse 84 05/10/25 15:19 BP 136/86 05/10/25 15:19 Pulse Ox 96 05/10/25 15:19 Oxygen Delivery Method Room Air 05/10/25 15:19 BMI result Body Mass Index 30.8 Const General: healthy appearing, no acute distress and well developed Nutritional Appearance: well nourished and obese Orientation/consciousness: patient oriented x3 Resp Effort & Inspection: normal respiratory effort, able to speak in complete sentences, no tracheal deviation and symmetric chest movement Auscultation: clear to auscultation bilaterally Cardio Rate: regular rate GI Inspection: Yes normal to inspection and No distended Palpation (GI): Soft to palpation, not firm, nontender and No hepatosplenomegaly present Auscultation: normal bowel sounds General: Yes no CVA tenderness Back/Spine/Pelvis Back: no CVA tenderness Skin General skin exam: elasticity normal, turgor normal and dry skin Neuro General: patient oriented x3 Psych Appearance: grossly normal Mental Status: mental status grossly normal Assessment & Plan Assessment & Plan (1) GERD (gastroesophageal reflux disease): Code(s): K21.9 - Gastro-esophageal reflux disease without esophagitis Category: Medical Qualifiers: Esophagitis presence: esophagitis presence not specified Qualified Code(s): K21.9 - Gastro-esophageal reflux disease without esophagitis (2) Diverticulitis: Code(s): K57.92 - Diverticulitis of intestine, part unspecified, without perforation or abscess without bleeding Category: Medical (3) Sigmoid diverticulum: Code(s): K57.30 - Diverticulosis of large intestine without perforation or abscess without bleeding Category: Medical (4) Status post colonoscopy: Code(s): Z98.890 - Other specified postprocedural states Plan Patient will continue taking omeprazole daily. Avoid dietary triggers and late night snacking. Patient may increase high-fiber diet to help with moving her b owels. Continue MiraLax as needed. Patient can take fiber supplements with pre and probiotics. Increase fluid intake and activity to promote bowel motility. Patient will follow-up in 6 months. She will call us if she will have any GI concerning symptoms. Patient is agreeable to this plan and verbalizes understanding of instructions. She was given the opportunity to ask questions and all questions answered. Thank you for allowing me to participate in her care Coding Level of Care Code Est Pt Level 4 (12826) Complex visit Add On G2211 Diagnoses Gastroesophageal reflux disease, unspecified whether esophagitis present K21.9 Esophagitis presence: esophagitis presence not specified Diverticulitis K57.92 Sigmoid diverticulum K57.30 Status post colonoscopy Z98.890 Time Spent (min) 35 Comment 25 minutes spent with patient and additional 10 minutes spent reviewing her records
[2025-05-10 15:19] VITALS: BP 136/86; PULSE 84; O2SAT 96; BMI 30.8
--- OUTSIDE RECORDS SUMMARY | 2025-05-10 19:37 | XMS_ITS | Clinical Summary ---
Author Organization [facility] Address [address] [place] [id number] Care Team Providers Care Infrastructure Developer Name Role Phone Dobbins Winter HAWKINS Primary Care Provider [phone] Allergies Active Allergy Reactions Criticality Noted Date [...] Encounters Date Type Department Care Team Description 03/27/2025 9:30 AM EDT Office Visit [facility] [address], [place] [address] Niranjan Cisneros MD Other abnormal auditory perceptions, bilateral (Primary Dx); Tinnitus of both ears 03/27/2025 9:00 AM EDT Clinical Support [facility] [address] [place] [address] Selena Mcleod Au.D Other abnormal auditory perceptions, bilateral (Primary Dx) from Last 3 Months Immunizations Immunization Administration Dates Next Due Covid-19 mRNA Primary Series Vaccine - Moderna 0.5 mL Full Dose 06/26/2021 Influenza (AFLURIA/FLUZONE) Inactivated/Split Quadrivalent with Preservative IM 06/26/2021,04/04/2019 Influenza, Trivalent (FLUCEL VAX) MDCK, Preservative Free IM 04/18/2024 Influenza, Unspecified 04/18/2024 Social History Tobacco Use Types Packs/Day Years Used Date Smoking Tobacco: Former Cigarettes Q uit: 07/13/2018 Passive Smoke Exposure: Never Smokeless Tobacco: Never Tobacco Cessation:Counseling Given: Not Answered Alcohol Use Standard Drinks/Week Comments Yes 0 [...] - - Weight 99.8 kg (220 lb) 03/27/2025 9:08 AM EDT Height 165.1 cm (5' 5 ) 03/27/2025 9:08 AM EDT Body Mass Index 36.61 03/27/2025 9:08 AM EDT Plan of Treatment Health Maintenance Due Date Last Done Comments [...] Procedure Name Priority Date/Time Associated Diagnosis Comments CA PURE TONE AUDIOMETRY AIR ONLY Routine 03/27/2025 9:00 AM EDT Other abnormal auditory perceptions, bilateral from Last 3 Months Results * Audiometry (03/27/2025 9:00 AM EDT) Narrative Selena Mcleod Au.D - 03/27/2025 9:00 AM EDT Regina Granado 03/27/2025 9:13 AM us Niranjan Cisneros MD AUDIOLOGY SERVICES ORDERABLES Final Result from Last 3 Months Insurance [facility] Care Teams Infrastructure Developer Relationship Specialty Start Date End Date Winter Dobbins APRN [address] [place] [address] PCP - General Family Medicine 09/15/24
== END 2025-05-10 15:51 | disposition home or self-care (01) ==
LOC: HO.HGI 15:12
PROVIDERS: PCP Nurse Practitioner Family; Visit Provider Nurse Practitioner Family
DX: K21.9 Gastro-esophageal reflux disease without esophagitis (principal); K57.92 Diverticulitis of intestine, part unspecified, without perforation or abscess without bleeding; K57.30 Diverticulosis of large intestine without perforation or abscess without bleeding; Z98.890 Other specified postprocedural states
CPT/HCPCS: 99214